=== PATIENT | male | born 1935 | race Two or more races ===

== ENCOUNTER 2019-10-01 11:13 | Inpatient (IN) | payer MEDICARE, OTHER ==
[~2019-10-01] VITALS: Ht 165.1 cm; Wt 90.0 kg
[2019-10-01 11:44] LABS: Basophils # (auto) 0 uL; Basophils % (auto) 0.4 % (0.0-2.0); Eosinophils # (auto) 0.1 uL; Hematocrit 32.9 % (41.0-53.0); Hemoglobin 11.2 g/dL (13.5-17.5); Lymphocytes # (auto) 0.9 uL; Lymphocytes % (auto) 11.4 % (10.0-50.0); Mean Corpuscular Hemoglobin 31.7 pg (28.0-32.0); Mean Corpuscular Volume 93.1 fL (80.0-100.0); Monocytes # (auto) 0.7 uL; Monocytes % (auto) 9.1 % (0.0-12.0); Neutrophils # (auto) 5.9 uL; Neutrophils % (auto) 78.1 % (37.0-80.0); Platelet Count (auto) 191 10^3/uL (140-450); Red Blood Cells 3.54 10^6/uL (4.5-5.90); Red Cell Distribution Width 14.3 % (11.8-14.3); White Blood Cell 7.5 10^3/uL (4.4-10.8)
[2019-10-01] MEDS ORDERED: FUROSEMIDE 40 MG/4 ML VIAL IV ONE (12:00)
[2019-10-01 12:05] LABS: Albumin 3.3 g/dL (3.4-5.0); Anion Gap 8 (5-15); Blood Urea Nitrogen 38 mg/dL (7-18); Calcium 8.3 mg/dL (8.5-10.1); Carbon Dioxide 19 mmol/L (21-32); Chloride 113 mmol/L (98-107); Glucose 113 mg/dL (74-106); Potassium 4.5 mmol/L (3.5-5.1); Sodium 140 mmol/L (136-145)
[2019-10-01 12:09] LABS: Alanine Aminotransferase 17 U/L (16-61); Alkaline Phosphatase 91 U/L (45-117); Aspartate Aminotransferase 28 U/L (15-37); BUN/Creatinine Ratio 20.8; Bilirubin, Total 0.5 mg/dL (0.2-1.0); GFR African American 45 mL/min; GFR Non-African American 37 mL/min; Total Protein 6.5 g/dL (6.4-8.2)
[2019-10-01] MEDS ORDERED: NITROGLYCERIN 0.4 MG SL TAB SL PRN (14:45)
[2019-10-01] MEDS ORDERED: ENALAPRILAT 1.25 MG/ML-1ML VIAL IV PRN (14:45)
[2019-10-01] MEDS ORDERED: HYDROcodone-ACET 5/325MG TAB PO PRN (14:45)
[2019-10-01] MEDS ORDERED: MORPHINE SULF INJ 2 MG/ML SYRINGE 1ML IV PRN ×2 (14:45)
[2019-10-01] MEDS ORDERED: ACETAMINOPHEN 500 MG TAB PO PRN (14:45)
[2019-10-01] MEDS ORDERED: ONDANSETRON HCL 4 MG/2 ML VIAL IV PRN (14:45)
[2019-10-01] MEDS ORDERED: guaiFENesin-DM 100/10mg/5ml SYR PO PRN (15:00)
[2019-10-01] MEDS ORDERED: DEXTROSE (50%) 50ML SYRG IV PRN (15:15)
[2019-10-01 15:41] LABS: Cholesterol 117 mg/dL (< 200)
[2019-10-01 15:44] LABS: HDL Cholesterol 27 mg/dL (40-59); LDL Cholesterol 81 mg/dL (< 100); Triglycerides 83 mg/dL (< 150)
[2019-10-01] MEDS: CARVEDILOL 3.125 MG TAB PO SCH ×2 (16:02→21:44)
[2019-10-01] MEDS: InsuLIN REG 1unit/0.01ml Soln (100units/ml) SC SCH ×2 (17:00→21:44)
--- NOTE | 2019-10-01 17:36 | NUR ---
Telemetry admit from ER THAI RANGEL admitted to Telemetry unit after SBAR received. Patient oriented to Heena Marte, primary RN, unit, room, bed, and unit policies regarding patient care and visiting hours. Patient now on continuous telemetry monitoring, tele box # 11 and telemetry reading on arrival to unit is A-FIB AT 95BPM]. Patient placed on bedside oxygen, weighed by bedscale and encouraged to call if they need something. All questions and concerns addressed, patient verbalized understanding. Note: RECEIVED PT VIA WHEELCHAIR,PT IS AWAKE AND ALERT NO SIGNS OF DISTRESS AT THIS TIME, NOTED PITTING EDEMA 2+ on both lower etremities, vital signs within normal limits, will continue to monitor.
--- NOTE | 2019-10-01 17:36 | NUR ---
RECEIVED REPORT FROM LEONID GOOD IN ER
[2019-10-01 17:41] VITALS: BP 132/90
[2019-10-01] MEDS: FUROSEMIDE 20 MG/2 ML VIAL IV SCH (17:57)
[2019-10-01] MEDS: ACCU-CHEK COMFORT CURVE STRIP VI SCH ×2 (17:58→21:45)
[2019-10-01 18:00] VITALS: BP 147/76
[2019-10-01] MEDS ORDERED: ASPI-404 PO (18:18)
[2019-10-01] MEDS ORDERED: FINA5TAB4 PO (18:18)
[2019-10-01] MEDS ORDERED: TELM20TA PO (18:18)
[2019-10-01] MEDS ORDERED: ALFU10TA33 PO (18:18)
[2019-10-01] MEDS ORDERED: NEBI5TAB2 PO (18:18)
[2019-10-01] MEDS ORDERED: LORA-622 PO (18:18)
[2019-10-01] MEDS ORDERED: TADA20TA33 PO (18:18)
[2019-10-01] MEDS ORDERED: LISI-646 PO (18:18)
[2019-10-01] MEDS ORDERED: AMLO5TAB15 PO (18:18)
[2019-10-01] MEDS ORDERED: FERR45TA7 PO (18:18)
[2019-10-01] MEDS ORDERED: OMEP20TA PO (18:18)
[2019-10-01] MEDS ORDERED: INSU100I33 SC (18:18)
--- NOTE | 2019-10-01 19:27 | NUR ---
Opening Shift Note Assumed care of patient, awake and alert x 4. No S/S of distress/SOB. Bed is in lowest position and locked. Call light within reach. Board updated. Tele box number matches monitor and leads are in proper position. Instructed on POC and to call for assist PRN, will continue to monitor for changes Q1hr and PRN.
[2019-10-01] MEDS: ATORVASTATIN 20 MG TAB PO SCH (21:44)
[2019-10-01 21:48] VITALS: BP 145/84
[2019-10-02 05:30] VITALS: BP 137/76
[2019-10-02 06:01] LABS: Basophils # (auto) 0 uL; Basophils % (auto) 0.6 % (0.0-2.0); Eosinophils # (auto) 0.2 uL; Eosinophils % (auto) 2.9 % (0.0-7.0); Hematocrit 34.1 % (41.0-53.0); Hemoglobin 11.5 g/dL (13.5-17.5); Lymphocytes # (auto) 1.2 uL; Lymphocytes % (auto) 15.6 % (10.0-50.0); Mean Corpuscular Hemoglobin 31.1 pg (28.0-32.0); Mean Corpuscular Hgb Conc. 33.8 g/dL (32.0-36.0); Monocytes # (auto) 0.9 uL; Monocytes % (auto) 11.5 % (0.0-12.0); Neutrophils # (auto) 5.5 uL; Neutrophils % (auto) 69.4 % (37.0-80.0); Platelet Count (auto) 224 10^3/uL (140-450); Red Blood Cells 3.71 10^6/uL (4.5-5.90); White Blood Cell 7.9 10^3/uL (4.4-10.8)
[2019-10-02] MEDS: ACCU-CHEK COMFORT CURVE STRIP VI SCH ×4 (06:07→21:31)
[2019-10-02] MEDS: FUROSEMIDE 20 MG/2 ML VIAL IV SCH ×2 (06:07→17:42)
[2019-10-02 06:18] LABS: INR 1.14 (0.9-1.15); Partial Thromboplastin Time 27.3 sec (23.64-32.05)
[2019-10-02] MEDS: InsuLIN REG 1unit/0.01ml Soln (100units/ml) SC SCH ×4 (06:20→21:31)
[2019-10-02 06:30] LABS: BUN/Creatinine Ratio 24.7; Calcium 8.8 mg/dL (8.5-10.1)
--- NOTE | 2019-10-02 07:18 | NUR ---
Opening Shift Note Assumed care of patient, resting in bed with eyes closed. No S/S of distress/SOB or pain. Bed is set in lowest locked position with side rails up x 2 and call light is within reach. Will continue to monitor for changes Q1hr and PRN.
[2019-10-02 08:02] VITALS: BP 133/68
[2019-10-02 08:16] VITALS: BP 133/68
[2019-10-02] MEDS: FAMOTIDINE 20 MG TAB PO SCH (09:47)
[2019-10-02] MEDS: LISINOPRIL 10 MG TAB PO SCH (09:47)
[2019-10-02] MEDS: ASPirin-EC 81 mg tab PO SCH (09:47)
[2019-10-02] MEDS: CARVEDILOL 3.125 MG TAB PO SCH ×2 (09:48→21:28)
[2019-10-02 12:50] VITALS: BP 141/76
--- NOTE | 2019-10-02 13:28 | NUR ---
MD at bedside Dr. Torre, updated patient on POC.
--- NOTE | 2019-10-02 15:14 | NUR ---
Patient off unit Taken down via wheelchair to [facility] for VQ scan. No signs/symptoms of distress/SOB noted.
[2019-10-02 16:51] VITALS: BP 155/85
[2019-10-02 17:20] LABS: Urine Bacteria NONE SEEN /hpf (None Seen); Urine Blood Negative /uL (Negative); Urine Mucus FEW (None Seen); Urine Specific Gravity 1.013 (1.001-1.035); Urine WBC 1 /hpf (0 - 3)
--- NOTE | 2019-10-02 19:45 | NUR ---
Opening Shift Note Assumed care of patient, awake, alert, and oriented. No S/S of distress/SOB or pain. Bed in lowest/locked position, bed rails up x2, call light within reach. Instructed on POC and to call for assist PRN. Will continue to monitor for changes Q1hr and PRN.
[2019-10-02] MEDS: ATORVASTATIN 20 MG TAB PO SCH (21:27)
[2019-10-02 22:00] VITALS: BP 159/87
--- NOTE | 2019-10-03 03:30 | NUR ---
RECEIVED REPORT. ASSUMED CARE OF PT.
[2019-10-03 05:00] VITALS: BP 130/72
[2019-10-03] MEDS: FUROSEMIDE 20 MG/2 ML VIAL IV SCH ×2 (06:31→18:30)
[2019-10-03] MEDS: InsuLIN REG 1unit/0.01ml Soln (100units/ml) SC SCH ×4 (07:00→21:27)
[2019-10-03] MEDS: ACCU-CHEK COMFORT CURVE STRIP VI SCH ×4 (07:21→21:27)
--- NOTE | 2019-10-03 09:00 | NUR ---
PLEASANT COOPERATIVE PROFICIENT WITH SELF CARE. DENIES DISCOMFORT THIS AM.
[2019-10-03 09:02] VITALS: BP 127/66
--- NOTE | 2019-10-03 10:10 | NUR ---
DR. SJ GAMBOA.
[2019-10-03] MEDS: FAMOTIDINE 20 MG TAB PO SCH (10:36)
[2019-10-03] MEDS: ASPirin-EC 81 mg tab PO SCH (10:36)
[2019-10-03] MEDS: LISINOPRIL 10 MG TAB PO SCH (10:37)
[2019-10-03] MEDS: CARVEDILOL 3.125 MG TAB PO SCH ×2 (10:38→21:26)
--- NOTE | 2019-10-03 12:00 | NUR ---
DR. Kelvin GAMBOA. ORDERS RADIOLOGY OF HIP FOR PAIN REPORTED BY PT.
[2019-10-03 12:30] VITALS: BP 129/76
--- NOTE | 2019-10-03 12:40 | NUR ---
RETURNS FROM RADIOLOGY
[2019-10-03 17:00] VITALS: BP 150/88
--- NOTE | 2019-10-03 19:28 | NUR ---
Opening Shift Note Assumed care of patient, awake and alert. No S/S of distress/SOB or pain. Instructed on POC and to call for assist PRN, will continue to monitor for changes Q1hr and PRN. Side rails up x2. Bed locked in lowest position. Call light within reach.
[2019-10-03] MEDS: ATORVASTATIN 20 MG TAB PO SCH (21:26)
[2019-10-03 22:00] VITALS: BP 160/76
[2019-10-04 05:00] VITALS: BP 149/75
[2019-10-04] MEDS: FUROSEMIDE 20 MG/2 ML VIAL IV SCH ×2 (06:39→19:33)
[2019-10-04] MEDS: InsuLIN REG 1unit/0.01ml Soln (100units/ml) SC SCH ×4 (06:39→22:13)
[2019-10-04] MEDS: ACCU-CHEK COMFORT CURVE STRIP VI SCH ×4 (06:39→22:14)
[2019-10-04 07:06] LABS: Albumin 3.1 g/dL (3.4-5.0); Calcium 8.6 mg/dL (8.5-10.1); Potassium 3.7 mmol/L (3.5-5.1)
[2019-10-04 07:10] LABS: BUN/Creatinine Ratio 27.2; Bilirubin, Total 0.6 mg/dL (0.2-1.0); Total Protein 6.3 g/dL (6.4-8.2)
--- NOTE | 2019-10-04 07:22 | NUR ---
Endorsed care to day shift. Patient in bed awake with no signs of distress/sob/pain.
--- NOTE | 2019-10-04 07:40 | NUR ---
ASSUMED CARE OF PT AWAKE BRIGHT AND ENGAGING. DENIES DISCOMFORT. LUNG SOUNDS CLEAR. PEDAL PULSES STRONG. EDEMA MOSTLY RESOLVED IN LOWER EXTREMITIES.
[2019-10-04 09:20] VITALS: BP 126/66
[2019-10-04] MEDS ORDERED: DILTIAZEM HCL 120MG ER CAP PO ONE (10:15)
--- NOTE | 2019-10-04 10:30 | NUR ---
BOTH MARIBEL GARCES AND DR. Kelvin PRASAD SEE PT. EXPLAIN PLANS FOR MEDICATION AND MRI WITH PLANNED DC TOMORROW.
[2019-10-04] MEDS: FAMOTIDINE 20 MG TAB PO SCH (12:00)
[2019-10-04] MEDS: LISINOPRIL 10 MG TAB PO SCH (12:00)
--- NOTE | 2019-10-04 12:31 | NUR ---
RETURNS FROM MRI. FSBS COVERED WITH SLIDING SCALE.
[2019-10-04] MEDS: CARVEDILOL 12.5 MG TAB PO SCH ×2 (12:33→21:52)
--- NOTE | 2019-10-04 15:32 | NUR ---
Nutrition Assessment Notes Please refer to link for full assessment notes Est energy needs: 3046-1069 kcals (17-20 kcals/kgBW) Est protein needs: 56-70 gms/day (0.8-1.0 gm/kg AdjBW) Will continue to monitor and reassess prn Addendum: 10/04/19 at [address] Amended: Links added.
--- NOTE | 2019-10-04 16:00 | NUR ---
C/O IV SITE LEAKING. ASSESSED. SMALL AMOUNT OF OLD BLOOD NOTED UNDER DSG AT INSERTION POINT. IV HEPLOCK FLUSHED. PATENT. DSG REINFORCED. PT SHARES THAT HE DID FEEL ANXIETY WHEN RETURNING TO HIS ROOM FROM MRI. REASSURED THAT REPORTED ANXIETY WITH AN MRI IS NOT UNCOMMON. PT STATES FEELING BETTER. FAMILY MEMBERS VISITING.
[2019-10-04 17:10] VITALS: BP 122/65
[2019-10-04 21:00] VITALS: BP 122/60
[2019-10-04] MEDS: APIXABAN 2.5 MG TAB PO SCH (21:49)
[2019-10-04] MEDS: ATORVASTATIN 20 MG TAB PO SCH (21:50)
[2019-10-05 04:30] VITALS: BP 130/67
[2019-10-05] MEDS: FUROSEMIDE 20 MG/2 ML VIAL IV SCH (05:47)
[2019-10-05] MEDS: ACCU-CHEK COMFORT CURVE STRIP VI SCH ×2 (06:28→11:30)
[2019-10-05] MEDS: InsuLIN REG 1unit/0.01ml Soln (100units/ml) SC SCH ×2 (06:29→11:30)
--- NOTE | 2019-10-05 08:00 | NUR ---
ASSUMED CARE. BRIGHT ALERT AND VERBALLY APPROPRIATE. NO COMPLAINTS. INDEPENDENT IN HIS ADL'S
[2019-10-05 09:14] VITALS: BP 134/79
[2019-10-05] MEDS ORDERED: DILTIAZEM HCL 120MG ER CAP PO SCH (10:00)
[2019-10-05] MEDS: APIXABAN 2.5 MG TAB PO SCH (11:30)
[2019-10-05] MEDS: LISINOPRIL 10 MG TAB PO SCH (11:30)
[2019-10-05] MEDS: FAMOTIDINE 20 MG TAB PO SCH (11:30)
[2019-10-05] MEDS: CARVEDILOL 12.5 MG TAB PO SCH (11:30)
--- NOTE | 2019-10-05 11:30 | NUR ---
PRESENT WHEN DR. PRASAD ROUNDS. CONFIRMS HOME MEDICATIONS WITH PT. HAS APPOINTMENT WITH DR. MCELROY THIS NEXT TUE THE . DAUGHTER IS IN THE ROOM AND CONFIRMS. PT IS WELL VERSED IN HIS MEDICATIONS. DISCUSSION HAD RE: F/U FOR SKELETAL SPINE CHANGES.
[2019-10-05 13:22] VITALS: BP 150/97
--- NOTE | 2019-10-05 13:30 | NUR ---
DISCHARGE PROCESSED. STABLE. INSTRUCTIONS, APPOINTMENTS AND PRESCRIPTIONS PROVIDED. IV TO RT HAND DC'D CANNULA INTACT.
--- NOTE | 2019-10-05 14:00 | NUR ---
DC HOME VIA WC TO PRIVATE VEHICLE.
--- NOTE | 2019-10-05 14:53 | NUR ---
assessment Patient is a 84 year old male who is alert and oriented. Patients cognitive abilities are intact. Prior to admission patient lived home with his and functioned independently. Patient informed me he is able to care for his own ADLs. Per patient he will return home to his prior living arrangements post discharge and family will transport him home. Patient informed me he has good family support. Family was at bedside while I did my assessment. Patients PCP is Dr White. Patient may benefit from home health for vitals and safety on discharge. I informed patient he has a right to speak to a social media content specialist regarding all care. I informed patient he has a right to participate in any and all discharge planning. Patient does not have a POA and advanced directive. I have offered patient information on POA and advanced directives. I informed the patient the advantages and benefits of having an Advanced Directive. Patient verbalized understanding and agreed to discharge plan. Addendum: 10/05/19 at 1455 by Rere CHAMBERLAIN Amended: Links added.
== END 2019-10-05 14:00 | disposition home or self-care (01) | DRG 291 ==
LOC: ER 11:16 → TELE 11:17 → TELE-EAST 17:45
PROVIDERS: ADMIT Nurse Practitioner Acute Care; ATTEND Family Medicine
DX: I13.0 Hypertensive heart and chronic kidney disease with heart failure and stage 1 through stage 4 chronic kidney disease, or unspecified chronic kidney disease (principal); I50.43 Acute on chronic combined systolic (congestive) and diastolic (congestive) heart failure; N17.0 Acute kidney failure with tubular necrosis; I48.91 Unspecified atrial fibrillation; N18.3 Chronic kidney disease, stage 3 (moderate); D64.9 Anemia, unspecified; E03.9 Hypothyroidism, unspecified; E11.22 Type 2 diabetes mellitus with diabetic chronic kidney disease; E66.9 Obesity, unspecified; M51.26 Other intervertebral disc displacement, lumbar region; M48.061 Spinal stenosis, lumbar region without neurogenic claudication; M54.32 Sciatica, left side; M16.12 Unilateral primary osteoarthritis, left hip; G89.29 Other chronic pain; I71.4 Abdominal aortic aneurysm, without rupture; Z88.8 Allergy status to other drugs, medicaments and biological substances; Z68.33 Body mass index [BMI] 33.0-33.9, adult
CPT/HCPCS: 36415; 71045; 72131; 72148; 73700; 76775; 78582; 80048; 80053; 80061; 81001; 82570; 82962; 83036; 83735; 83880; 84156; 84300; 84443; 84484; 85025; 85379; 85610; 85730; 86141; 93306; 93970; 96374; 96376; G0378; J1815

== ENCOUNTER → 2020-01-03 | Outpatient (CLI) | payer MEDICARE, OTHER ==
[~2020-01-03] MED LIST: ALFU10TA33 PO; AMLO5TAB15 PO; APIX2.5T PO; ASPI-404 PO; ATOR40TA52 PO; CARV25TA55 PO; DILT120T3 PO; FERR45TA7 PO; FINA5TAB4 PO; FURO20TA3 PO; INSU100I33 SC; LISI-646 PO; OMEP20TA PO; TADA20TA33 PO
[2020-01-03 07:25] LABS: Basophils # (auto) 0.1 10 ^3/uL (0-0.2); Eosinophils # (auto) 0.3 10 ^3/uL (0-0.8); Eosinophils % (auto) 3.5 % (0.0-7.0); Hemoglobin 12.9 g/dL (13.5-17.5); Lymphocytes # (auto) 2.7 10 ^3/uL (0.4-5.4); Lymphocytes % (auto) 32.7 % (10.0-50.0); Mean Corpuscular Hemoglobin 31.3 pg (28.0-32.0); Monocytes # (auto) 0.8 10 ^3/uL (0-1.3); Monocytes % (auto) 10.4 % (0.0-12.0); Neutrophils # (auto) 4.2 10 ^3/uL (1.6-8.6); Neutrophils % (auto) 52.4 % (37.0-80.0); Platelet Count (auto) 160 10^3/uL (140-450); Red Blood Cells 4.14 10^6/uL (4.5-5.90); Red Cell Distribution Width 14.5 % (11.8-14.3); White Blood Cell 8.1 10^3/uL (4.4-10.8)
[2020-01-03 07:39] LABS: Urine Bacteria NONE SEEN /hpf (None Seen); Urine Blood Negative /uL (Negative); Urine Specific Gravity 1.009 (1.001-1.035); Urine WBC 1 /hpf (0 - 3)
[2020-01-03 08:27] LABS: Albumin 3.2 g/dL (3.4-5.0); Calcium 8.7 mg/dL (8.5-10.1); Potassium 3.8 mmol/L (3.5-5.1)
[2020-01-03 08:33] LABS: BUN/Creatinine Ratio 23.8; Bilirubin, Total 0.5 mg/dL (0.2-1.0); Total Protein 6.6 g/dL (6.4-8.2)
[2020-01-03 08:36] LABS: Free T4 (Free Thyroxine) 1.17 ng/dL (0.89-1.76)
[2020-01-03 08:37] LABS: Prostate Specific Antigen 0.49 ng/mL (0.0-4.0)
[2020-01-03 08:38] LABS: Folate (Folic Acid) 22.34 ng/mL (5.38-24)
== END | disposition home or self-care (01) ==
LOC: LAB 07:06
PROVIDERS: ATTEND Internal Medicine
DX: E11.69 Type 2 diabetes mellitus with other specified complication (principal); N40.0 Benign prostatic hyperplasia without lower urinary tract symptoms; I48.91 Unspecified atrial fibrillation
CPT/HCPCS: 36415; 80053; 80061; 81001; 82043; 82607; 82746; 83036; 84153; 84439; 84443; 85025

== ENCOUNTER → 2020-03-07 | Outpatient (CLI) | payer MEDICARE, OTHER ==
[~2020-03-07] VITALS: Ht 165.1 cm; Wt 80.7 kg
[~2020-03-07] MED LIST changes: +ADENOSINE 68 MG in GIVE UN-DILUTED 0 ML IV STA; -ASPI-404 PO; +ASPI-543 PO
== END | disposition home or self-care (01) ==
LOC: XY 07:26
PROVIDERS: ATTEND Internal Medicine
DX: I48.91 Unspecified atrial fibrillation (principal); E11.9 Type 2 diabetes mellitus without complications; I10 Essential (primary) hypertension; I27.20 Pulmonary hypertension, unspecified; I49.9 Cardiac arrhythmia, unspecified; N40.0 Benign prostatic hyperplasia without lower urinary tract symptoms
CPT/HCPCS: 78452; 93017; A9500; J0153

== ENCOUNTER → 2020-05-12 | Outpatient (CLI) | payer MEDICARE, OTHER ==
[~2020-05-12] MED LIST changes: -ADENOSINE 68 MG in GIVE UN-DILUTED 0 ML IV STA
== END | disposition home or self-care (01) ==
LOC: RT 08:36
PROVIDERS: ATTEND Internal Medicine Pulmonary Disease
DX: J84.10 Pulmonary fibrosis, unspecified (principal); I27.20 Pulmonary hypertension, unspecified
CPT/HCPCS: 94060; 94727; 94729

== ENCOUNTER → 2020-07-11 | Outpatient (CLI) | payer MEDICARE, OTHER ==
[2020-07-11 16:32] LABS: Anion Gap 7 (5-15); BUN/Creatinine Ratio 20.3; Blood Urea Nitrogen 24 mg/dL (7-18); Calcium 8.7 mg/dL (8.5-10.1); Carbon Dioxide 25 mmol/L (21-32); Chloride 106 mmol/L (98-107); GFR African American 75 mL/min; GFR Non-African American 62 mL/min; Glucose 334 mg/dL (74-106); Potassium 4.4 mmol/L (3.5-5.1); Sodium 138 mmol/L (136-145)
== END | disposition home or self-care (01) ==
LOC: LAB 15:35
DX: R91.1 Solitary pulmonary nodule (principal)
CPT/HCPCS: 36415; 80048

== ENCOUNTER → 2020-09-04 | Outpatient (CLI) | payer MEDICARE, OTHER ==
[2020-09-04 07:42] LABS: Basophils # (auto) 0 10 ^3/uL (0-0.2); Basophils % (auto) 0.4 % (0.0-2.0); Eosinophils # (auto) 0.3 10 ^3/uL (0-0.8); Eosinophils % (auto) 2.9 % (0.0-7.0); Hematocrit 35.7 % (41.0-53.0); Hemoglobin 11.7 g/dL (13.5-17.5); Lymphocytes # (auto) 1.3 10 ^3/uL (0.4-5.4); Lymphocytes % (auto) 13.2 % (10.0-50.0); Mean Corpuscular Hgb Conc. 32.8 g/dL (32.0-36.0); Mean Corpuscular Volume 94.5 fL (80.0-100.0); Monocytes # (auto) 0.9 10 ^3/uL (0-1.3); Monocytes % (auto) 9.4 % (0.0-12.0); Neutrophils # (auto) 7.5 10 ^3/uL (1.6-8.6); Neutrophils % (auto) 74.1 % (37.0-80.0); Nucleated Red Blood Cells % 0.1 %; Platelet Count (auto) 164 10^3/uL (140-450); Red Blood Cells 3.77 10^6/uL (4.5-5.90); Red Cell Distribution Width 13.7 % (11.8-14.3); White Blood Cell 10.1 10^3/uL (4.4-10.8)
[2020-09-04 09:53] LABS: Albumin 3.1 g/dL (3.4-5.0); Calcium 8.1 mg/dL (8.5-10.1); Potassium 3.7 mmol/L (3.5-5.1)
[2020-09-04 09:58] LABS: Bilirubin, Total 0.7 mg/dL (0.2-1.0); Total Protein 6.2 g/dL (6.4-8.2)
== END | disposition home or self-care (01) ==
LOC: LAB 07:12
PROVIDERS: ATTEND Internal Medicine
DX: E11.22 Type 2 diabetes mellitus with diabetic chronic kidney disease (principal); N18.30 Chronic kidney disease, stage 3 unspecified
CPT/HCPCS: 36415; 80053; 80061; 83036; 85025

== ENCOUNTER → 2020-09-11 | Outpatient (CLI) | payer MEDICARE, OTHER ==
[2020-09-11 11:41] LABS: Basophils # (auto) 0.1 10 ^3/uL (0-0.2); Basophils % (auto) 0.4 % (0.0-2.0); Eosinophils # (auto) 0.2 10 ^3/uL (0-0.8); Eosinophils % (auto) 2.1 % (0.0-7.0); Hematocrit 36.5 % (41.0-53.0); Hemoglobin 12.2 g/dL (13.5-17.5); Lymphocytes % (auto) 16.3 % (10.0-50.0); Mean Corpuscular Hemoglobin 31.1 pg (28.0-32.0); Mean Corpuscular Hgb Conc. 33.3 g/dL (32.0-36.0); Mean Corpuscular Volume 93.3 fL (80.0-100.0); Monocytes % (auto) 8.3 % (0.0-12.0); Neutrophils # (auto) 8.8 10 ^3/uL (1.6-8.6); Neutrophils % (auto) 72.9 % (37.0-80.0); Nucleated Red Blood Cells % 0.1 %; Platelet Count (auto) 206 10^3/uL (140-450); Red Blood Cells 3.92 10^6/uL (4.5-5.90); Red Cell Distribution Width 13.7 % (11.8-14.3); White Blood Cell 12.1 10^3/uL (4.4-10.8)
[2020-09-11 11:50] LABS: Albumin 3.2 g/dL (3.4-5.0); Calcium 8.4 mg/dL (8.5-10.1); Potassium 4.2 mmol/L (3.5-5.1)
[2020-09-11 11:55] LABS: BUN/Creatinine Ratio 22.5; Bilirubin, Total 0.6 mg/dL (0.2-1.0); Total Protein 6.8 g/dL (6.4-8.2)
== END | disposition home or self-care (01) ==
LOC: LAB 11:01
PROVIDERS: ATTEND Internal Medicine
DX: C78.02 Secondary malignant neoplasm of left lung (principal); E03.9 Hypothyroidism, unspecified
CPT/HCPCS: 36415; 80053; 83615; 84436; 84443; 85025

== ENCOUNTER → 2020-09-25 | Outpatient (CLI) | payer MEDICARE, OTHER ==
[2020-09-25 08:49] LABS: Albumin 2.9 g/dL (3.4-5.0); Calcium 8.3 mg/dL (8.5-10.1); Magnesium 1.9 mg/dL (1.6-2.6); Potassium 4.2 mmol/L (3.5-5.1); Uric Acid 4.2 mg/dL (3.5-7.2)
[2020-09-25 08:53] LABS: BUN/Creatinine Ratio 21.9; Bilirubin, Total 0.5 mg/dL (0.2-1.0); Phosphorus 3.1 mg/dL (2.5-4.90); Total Protein 6.5 g/dL (6.4-8.2)
[2020-09-25 09:09] LABS: Micro Albumin 15.3 mg/L (0-30.0)
== END | disposition home or self-care (01) ==
LOC: LAB 08:09
PROVIDERS: ATTEND Internal Medicine Nephrology
DX: E78.5 Hyperlipidemia, unspecified (principal); E11.22 Type 2 diabetes mellitus with diabetic chronic kidney disease; N18.30 Chronic kidney disease, stage 3 unspecified; D63.1 Anemia in chronic kidney disease; E21.3 Hyperparathyroidism, unspecified; M10.9 Gout, unspecified; R80.9 Proteinuria, unspecified; E56.9 Vitamin deficiency, unspecified
CPT/HCPCS: 36415; 80053; 82043; 82306; 82570; 83036; 83735; 83970; 84100; 84550

== ENCOUNTER → 2020-10-07 | Outpatient (CLI) | payer MEDICARE, OTHER ==
[2020-10-07 14:06] LABS: Basophils # (auto) 0.1 10 ^3/uL (0-0.2); Basophils % (auto) 0.5 % (0.0-2.0); Eosinophils # (auto) 0.1 10 ^3/uL (0-0.8); Eosinophils % (auto) 1.3 % (0.0-7.0); Hematocrit 34.6 % (41.0-53.0); Hemoglobin 11.8 g/dL (13.5-17.5); Lymphocytes # (auto) 1.7 10 ^3/uL (0.4-5.4); Lymphocytes % (auto) 16.4 % (10.0-50.0); Mean Corpuscular Hemoglobin 31.7 pg (28.0-32.0); Mean Corpuscular Hgb Conc. 34.2 g/dL (32.0-36.0); Mean Corpuscular Volume 92.7 fL (80.0-100.0); Monocytes # (auto) 0.9 10 ^3/uL (0-1.3); Monocytes % (auto) 8.9 % (0.0-12.0); Neutrophils # (auto) 7.6 10 ^3/uL (1.6-8.6); Neutrophils % (auto) 72.9 % (37.0-80.0); Platelet Count (auto) 196 10^3/uL (140-450); Red Blood Cells 3.73 10^6/uL (4.5-5.90); Red Cell Distribution Width 13.5 % (11.8-14.3); White Blood Cell 10.4 10^3/uL (4.4-10.8)
[2020-10-07 14:41] LABS: Potassium 4.1 mmol/L (3.5-5.1)
[2020-10-07 14:51] LABS: Albumin 3.2 g/dL (3.4-5.0); BUN/Creatinine Ratio 22.1; Bilirubin, Total 0.6 mg/dL (0.2-1.0); Calcium 8.6 mg/dL (8.5-10.1); Total Protein 6.8 g/dL (6.4-8.2)
== END | disposition home or self-care (01) ==
LOC: LAB 13:49
PROVIDERS: ATTEND Internal Medicine
DX: C78.02 Secondary malignant neoplasm of left lung (principal); E78.5 Hyperlipidemia, unspecified
CPT/HCPCS: 36415; 80053; 83615; 84436; 84443; 85025

== ENCOUNTER → 2020-10-10 | Outpatient (CLI) | payer MEDICARE, OTHER ==
[2020-10-10 10:49] LABS: Basophils # (auto) 0.1 10 ^3/uL (0-0.2); Basophils % (auto) 0.7 % (0.0-2.0); Eosinophils # (auto) 0.2 10 ^3/uL (0-0.8); Hematocrit 33.7 % (41.0-53.0); Hemoglobin 11.5 g/dL (13.5-17.5); Lymphocytes # (auto) 1.3 10 ^3/uL (0.4-5.4); Lymphocytes % (auto) 15.4 % (10.0-50.0); Mean Corpuscular Hemoglobin 31.8 pg (28.0-32.0); Mean Corpuscular Volume 93.4 fL (80.0-100.0); Monocytes # (auto) 0.7 10 ^3/uL (0-1.3); Monocytes % (auto) 8.3 % (0.0-12.0); Neutrophils # (auto) 6.1 10 ^3/uL (1.6-8.6); Neutrophils % (auto) 73.6 % (37.0-80.0); Platelet Count (auto) 168 10^3/uL (140-450); Red Blood Cells 3.61 10^6/uL (4.5-5.90); White Blood Cell 8.3 10^3/uL (4.4-10.8)
[2020-10-10 11:03] LABS: INR 1.13 (0.9-1.15); Partial Thromboplastin Time 28.2 sec (23.0-31.2)
[2020-10-10 11:18] LABS: Albumin 2.9 g/dL (3.4-5.0); Bilirubin, Direct 0.2 mg/dL (0-0.2); Calcium 7.9 mg/dL (8.5-10.1); Potassium 4.9 mmol/L (3.5-5.1)
[2020-10-10 11:21] LABS: BUN/Creatinine Ratio 22.5; Bilirubin, Total 0.6 mg/dL (0.2-1.0); Total Protein 6.5 g/dL (6.4-8.2)
== END | disposition home or self-care (01) ==
LOC: LAB 10:27
PROVIDERS: ATTEND Internal Medicine
DX: C78.02 Secondary malignant neoplasm of left lung (principal); I50.31 Acute diastolic (congestive) heart failure
CPT/HCPCS: 36415; 80053; 80076; 83615; 85025; 85610; 85730

== ENCOUNTER → 2020-10-24 | Outpatient (CLI) | payer MEDICARE, OTHER ==
[~2020-10-24] MED LIST changes: +AMLO-489 PO; -AMLO5TAB15 PO
[2020-10-24 10:22] LABS: Basophils # (auto) 0 10 ^3/uL (0-0.2); Basophils % (auto) 0.4 % (0.0-2.0); Eosinophils # (auto) 0.3 10 ^3/uL (0-0.8); Eosinophils % (auto) 2.4 % (0.0-7.0); Hematocrit 33.4 % (41.0-53.0); Hemoglobin 11.7 g/dL (13.5-17.5); Lymphocytes # (auto) 1.5 10 ^3/uL (0.4-5.4); Lymphocytes % (auto) 14.1 % (10.0-50.0); Mean Corpuscular Hemoglobin 32.4 pg (28.0-32.0); Mean Corpuscular Hgb Conc. 34.9 g/dL (32.0-36.0); Mean Corpuscular Volume 92.9 fL (80.0-100.0); Monocytes # (auto) 0.9 10 ^3/uL (0-1.3); Monocytes % (auto) 8.4 % (0.0-12.0); Neutrophils # (auto) 8.1 10 ^3/uL (1.6-8.6); Neutrophils % (auto) 74.7 % (37.0-80.0); Platelet Count (auto) 182 10^3/uL (140-450); Red Cell Distribution Width 13.7 % (11.8-14.3); White Blood Cell 10.9 10^3/uL (4.4-10.8)
[2020-10-24 10:35] LABS: INR 1.12 (0.9-1.15); Partial Thromboplastin Time 29.1 sec (23.0-31.2)
[2020-10-24 10:55] LABS: Calcium 8.2 mg/dL (8.5-10.1); Potassium 4.2 mmol/L (3.5-5.1)
[2020-10-24 11:00] LABS: BUN/Creatinine Ratio 22.7; Bilirubin, Direct 0.3 mg/dL (0-0.2); Bilirubin, Total 0.7 mg/dL (0.2-1.0); Total Protein 6.6 g/dL (6.4-8.2)
== END | disposition home or self-care (01) ==
LOC: LAB 09:53
PROVIDERS: ATTEND Internal Medicine
DX: C78.02 Secondary malignant neoplasm of left lung (principal); I50.31 Acute diastolic (congestive) heart failure
CPT/HCPCS: 36415; 80053; 80076; 83615; 85025; 85610; 85730

== ENCOUNTER → 2020-10-31 | Outpatient (CLI) | payer MEDICARE, OTHER ==
[2020-10-31 10:39] LABS: Basophils # (auto) 0 10 ^3/uL (0-0.2); Basophils % (auto) 0.4 % (0.0-2.0); Eosinophils # (auto) 0.3 10 ^3/uL (0-0.8); Eosinophils % (auto) 2.2 % (0.0-7.0); Hemoglobin 11.6 g/dL (13.5-17.5); Lymphocytes # (auto) 1.5 10 ^3/uL (0.4-5.4); Lymphocytes % (auto) 11.9 % (10.0-50.0); Mean Corpuscular Hemoglobin 31.6 pg (28.0-32.0); Mean Corpuscular Hgb Conc. 34.1 g/dL (32.0-36.0); Mean Corpuscular Volume 92.7 fL (80.0-100.0); Monocytes # (auto) 1.1 10 ^3/uL (0-1.3); Monocytes % (auto) 8.8 % (0.0-12.0); Neutrophils # (auto) 9.8 10 ^3/uL (1.6-8.6); Neutrophils % (auto) 76.7 % (37.0-80.0); Nucleated Red Blood Cells % 0.1 %; Platelet Count (auto) 208 10^3/uL (140-450); Red Blood Cells 3.67 10^6/uL (4.5-5.90); Red Cell Distribution Width 14.2 % (11.8-14.3); White Blood Cell 12.8 10^3/uL (4.4-10.8)
[2020-10-31 11:06] LABS: INR 1.13 (0.9-1.15); Partial Thromboplastin Time 28.8 sec (23.0-31.2)
[2020-10-31 11:15] LABS: Albumin 3.2 g/dL (3.4-5.0); Calcium 8.3 mg/dL (8.5-10.1); Potassium 4.2 mmol/L (3.5-5.1)
[2020-10-31 11:19] LABS: BUN/Creatinine Ratio 22.1; Bilirubin, Total 0.7 mg/dL (0.2-1.0); Total Protein 6.9 g/dL (6.4-8.2)
[2020-11-03 16:04] LABS: Hepatitis B Surface Antibody Negative
[2020-11-03 16:35] LABS: Hepatitis A Total Antibody Positive
[2020-11-03 16:56] LABS: Hepatitis B Core Total AB Negative; Hepatitis C Antibody Negative (Negative)
[2020-11-03 16:57] LABS: Hepatitis B Surface Antigen Negative (Negative)
== END | disposition home or self-care (01) ==
LOC: LAB 10:15
PROVIDERS: ATTEND Internal Medicine
DX: C78.02 Secondary malignant neoplasm of left lung (principal); E03.9 Hypothyroidism, unspecified; I50.31 Acute diastolic (congestive) heart failure; D84.81 Immunodeficiency due to conditions classified elsewhere
CPT/HCPCS: 36415; 80053; 83615; 84436; 84443; 85025; 85610; 85730; 86704; 86706; 86708; 86803; 87340

== ENCOUNTER → 2020-11-21 | Outpatient (CLI) | payer MEDICARE, OTHER ==
[2020-11-21 09:33] LABS: Basophils # (auto) 0.1 10 ^3/uL (0-0.2); Basophils % (auto) 0.8 % (0.0-2.0); Eosinophils # (auto) 0.3 10 ^3/uL (0-0.8); Hemoglobin 11.7 g/dL (13.5-17.5); Lymphocytes # (auto) 1.8 10 ^3/uL (0.4-5.4); Lymphocytes % (auto) 13.5 % (10.0-50.0); Mean Corpuscular Hemoglobin 31.1 pg (28.0-32.0); Mean Corpuscular Hgb Conc. 33.6 g/dL (32.0-36.0); Mean Corpuscular Volume 92.6 fL (80.0-100.0); Monocytes % (auto) 7.2 % (0.0-12.0); Neutrophils # (auto) 10.4 10 ^3/uL (1.6-8.6); Neutrophils % (auto) 76.5 % (37.0-80.0); Platelet Count (auto) 213 10^3/uL (140-450); Red Blood Cells 3.78 10^6/uL (4.5-5.90); Red Cell Distribution Width 14.1 % (11.8-14.3); White Blood Cell 13.6 10^3/uL (4.4-10.8)
[2020-11-21 10:19] LABS: Potassium 4.3 mmol/L (3.5-5.1)
[2020-11-21 10:26] LABS: BUN/Creatinine Ratio 22.7; Bilirubin, Total 0.6 mg/dL (0.2-1.0); Calcium 8.7 mg/dL (8.5-10.1); Total Protein 6.6 g/dL (6.4-8.2)
[2020-11-21 10:29] LABS: INR 1.16 (0.9-1.15); Partial Thromboplastin Time 27.9 sec (23.0-31.2)
[2020-11-24 11:20] LABS: Hepatitis B Surface Antibody Negative
[2020-11-24 11:51] LABS: Hepatitis A Total Antibody Negative
[2020-11-24 13:26] LABS: Hepatitis B Core Total AB Negative; Hepatitis B Surface Antigen Negative (Negative); Hepatitis C Antibody Negative (Negative)
== END | disposition home or self-care (01) ==
LOC: LAB 09:18
PROVIDERS: ATTEND Internal Medicine
DX: C78.02 Secondary malignant neoplasm of left lung (principal); I50.31 Acute diastolic (congestive) heart failure
CPT/HCPCS: 36415; 80053; 83615; 85025; 85610; 85730; 86704; 86706; 86708; 86803; 87340

== ENCOUNTER → 2020-12-05 | Outpatient (CLI) | payer MEDICARE, OTHER ==
[~2020-12-05] MED LIST changes: -LISI-646 PO; +LISI20TA28 PO
[2020-12-05 10:43] LABS: Basophils # (auto) 0 10 ^3/uL (0-0.2); Basophils % (auto) 0.4 % (0.0-2.0); Eosinophils # (auto) 0.2 10 ^3/uL (0-0.8); Eosinophils % (auto) 1.8 % (0.0-7.0); Hemoglobin 11.4 g/dL (13.5-17.5); Lymphocytes # (auto) 1.5 10 ^3/uL (0.4-5.4); Lymphocytes % (auto) 12.2 % (10.0-50.0); Mean Corpuscular Hgb Conc. 33.5 g/dL (32.0-36.0); Mean Corpuscular Volume 92.7 fL (80.0-100.0); Monocytes # (auto) 0.7 10 ^3/uL (0-1.3); Neutrophils # (auto) 9.6 10 ^3/uL (1.6-8.6); Neutrophils % (auto) 79.6 % (37.0-80.0); Platelet Count (auto) 182 10^3/uL (140-450); Red Blood Cells 3.67 10^6/uL (4.5-5.90); Red Cell Distribution Width 14.4 % (11.8-14.3); White Blood Cell 12.1 10^3/uL (4.4-10.8)
[2020-12-05 11:24] LABS: Calcium 8.4 mg/dL (8.5-10.1)
[2020-12-05 11:27] LABS: BUN/Creatinine Ratio 21.3; Bilirubin, Total 0.6 mg/dL (0.2-1.0); Total Protein 6.4 g/dL (6.4-8.2)
[2020-12-05 11:33] LABS: INR 1.13 (0.9-1.15); Partial Thromboplastin Time 26.3 sec (23.0-31.2)
[2020-12-08 14:58] LABS: Hepatitis A Ab IgM Negative
[2020-12-08 14:59] LABS: Hepatitis B Core IgM Negative; Hepatitis B Surface Antigen Negative (Negative); Hepatitis C Antibody Negative (Negative)
== END | disposition home or self-care (01) ==
LOC: LAB 10:23
PROVIDERS: ATTEND Internal Medicine
DX: C78.02 Secondary malignant neoplasm of left lung (principal); E03.9 Hypothyroidism, unspecified; I50.31 Acute diastolic (congestive) heart failure; D84.81 Immunodeficiency due to conditions classified elsewhere
CPT/HCPCS: 36415; 80053; 80074; 83615; 84436; 84443; 85025; 85610; 85730

== ENCOUNTER → 2020-12-12 | Outpatient (CLI) | payer MEDICARE, OTHER ==
[2020-12-12 10:57] LABS: Basophils # (auto) 0 10 ^3/uL (0-0.2); Basophils % (auto) 0.4 % (0.0-2.0); Eosinophils # (auto) 0.2 10 ^3/uL (0-0.8); Eosinophils % (auto) 1.6 % (0.0-7.0); Hematocrit 33.6 % (41.0-53.0); Hemoglobin 11.6 g/dL (13.5-17.5); Lymphocytes # (auto) 1.9 10 ^3/uL (0.4-5.4); Lymphocytes % (auto) 14.5 % (10.0-50.0); Mean Corpuscular Hemoglobin 31.5 pg (28.0-32.0); Mean Corpuscular Hgb Conc. 34.4 g/dL (32.0-36.0); Mean Corpuscular Volume 91.4 fL (80.0-100.0); Neutrophils # (auto) 9.7 10 ^3/uL (1.6-8.6); Neutrophils % (auto) 75.5 % (37.0-80.0); Platelet Count (auto) 180 10^3/uL (140-450); Red Blood Cells 3.68 10^6/uL (4.5-5.90); Red Cell Distribution Width 14.1 % (11.8-14.3); White Blood Cell 12.9 10^3/uL (4.4-10.8)
[2020-12-12 11:21] LABS: INR 1.09 (0.9-1.15); Partial Thromboplastin Time 26.4 sec (23.0-31.2)
[2020-12-12 15:48] LABS: Potassium 4.6 mmol/L (3.5-5.1)
[2020-12-12 16:01] LABS: BUN/Creatinine Ratio 21.6; Bilirubin, Total 0.6 mg/dL (0.2-1.0); Calcium 8.6 mg/dL (8.5-10.1); Total Protein 6.4 g/dL (6.4-8.2)
[2020-12-15 13:00] LABS: Hepatitis A Ab IgM Negative; Hepatitis B Core IgM Negative; Hepatitis B Surface Antigen Negative (Negative); Hepatitis C Antibody Negative (Negative)
== END | disposition home or self-care (01) ==
LOC: LAB 10:35
PROVIDERS: ATTEND Internal Medicine
DX: C78.02 Secondary malignant neoplasm of left lung (principal); I50.31 Acute diastolic (congestive) heart failure; E03.9 Hypothyroidism, unspecified; D84.81 Immunodeficiency due to conditions classified elsewhere
CPT/HCPCS: 36415; 80053; 80074; 83615; 84436; 84443; 85025; 85610; 85730

== ENCOUNTER → 2020-12-29 | Outpatient (CLI) | payer MEDICARE, OTHER ==
[~2020-12-29] MED LIST changes: +LISI-646 PO; -LISI20TA28 PO
[2020-12-29 09:51] LABS: Basophils # (auto) 0 10 ^3/uL (0-0.2); Basophils % (auto) 0.4 % (0.0-2.0); Eosinophils # (auto) 0.2 10 ^3/uL (0-0.8); Eosinophils % (auto) 1.8 % (0.0-7.0); Hematocrit 35.9 % (41.0-53.0); Lymphocytes # (auto) 1.6 10 ^3/uL (0.4-5.4); Lymphocytes % (auto) 16.1 % (10.0-50.0); Mean Corpuscular Hemoglobin 30.9 pg (28.0-32.0); Mean Corpuscular Hgb Conc. 33.4 g/dL (32.0-36.0); Mean Corpuscular Volume 92.4 fL (80.0-100.0); Monocytes # (auto) 0.8 10 ^3/uL (0-1.3); Monocytes % (auto) 8.3 % (0.0-12.0); Neutrophils # (auto) 7.4 10 ^3/uL (1.6-8.6); Neutrophils % (auto) 73.4 % (37.0-80.0); Platelet Count (auto) 190 10^3/uL (140-450); Red Blood Cells 3.88 10^6/uL (4.5-5.90); Red Cell Distribution Width 14.6 % (11.8-14.3); White Blood Cell 10.1 10^3/uL (4.4-10.8)
[2020-12-29 10:23] LABS: INR 1.12 (0.9-1.15); Partial Thromboplastin Time 27.9 sec (23.0-31.2)
[2020-12-29 11:42] LABS: Calcium 8.7 mg/dL (8.5-10.1); Potassium 4.4 mmol/L (3.5-5.1)
[2020-12-29 11:47] LABS: Bilirubin, Total 0.6 mg/dL (0.2-1.0); Total Protein 6.2 g/dL (6.4-8.2)
[2020-12-29 14:03] LABS: Hepatitis B Surface Antibody Negative
[2020-12-29 14:39] LABS: Hepatitis A Total Antibody Negative
[2020-12-29 15:34] LABS: Hepatitis B Core Total AB Negative; Hepatitis B Surface Antigen Negative (Negative); Hepatitis C Antibody Negative (Negative)
[2020-12-29 15:50] LABS: BUN/Creatinine Ratio 23.2
== END | disposition home or self-care (01) ==
LOC: LAB 09:18
PROVIDERS: ATTEND Internal Medicine
DX: C78.02 Secondary malignant neoplasm of left lung (principal); E55.9 Vitamin D deficiency, unspecified; I12.9 Hypertensive chronic kidney disease with stage 1 through stage 4 chronic kidney disease, or unspecified chronic kidney disease; E11.22 Type 2 diabetes mellitus with diabetic chronic kidney disease; N18.30 Chronic kidney disease, stage 3 unspecified; E78.2 Mixed hyperlipidemia
CPT/HCPCS: 36415; 80053; 83615; 84436; 84443; 85025; 85610; 85730; 86704; 86706; 86708; 86803; 87340

== ENCOUNTER → 2020-12-31 | Outpatient (CLI) | payer MEDICARE, OTHER ==
[2020-12-31 13:44] LABS: Protein, Urine 10.9 mg/dL (0.0-11.9)
[2020-12-31 14:19] LABS: Chloride 105 mmol/L (98-107); Potassium 3.9 mmol/L (3.5-5.1); Sodium 141 mmol/L (136-145)
[2020-12-31 14:20] LABS: Alanine Aminotransferase 15 U/L (16-61); Alkaline Phosphatase 68 U/L (45-117); Anion Gap 10 (5-15); Aspartate Aminotransferase 24 U/L (15-37); BUN/Creatinine Ratio 27.7; Bilirubin, Total 0.7 mg/dL (0.2-1.0); Blood Urea Nitrogen 31 mg/dL (7-18); Calcium 8.4 mg/dL (8.5-10.1); Carbon Dioxide 26 mmol/L (21-32); GFR African American 80 mL/min; GFR Non-African American 66 mL/min; Glucose 199 mg/dL (74-106); Phosphorus 3.5 mg/dL (2.5-4.90); Total Protein 6.2 g/dL (6.4-8.2); Uric Acid 5.5 mg/dL (3.5-7.2)
== END | disposition home or self-care (01) ==
LOC: LAB 10:49
PROVIDERS: ATTEND Internal Medicine Nephrology
DX: I12.9 Hypertensive chronic kidney disease with stage 1 through stage 4 chronic kidney disease, or unspecified chronic kidney disease (principal); E11.22 Type 2 diabetes mellitus with diabetic chronic kidney disease; N18.30 Chronic kidney disease, stage 3 unspecified; D63.1 Anemia in chronic kidney disease; M10.9 Gout, unspecified; E21.3 Hyperparathyroidism, unspecified; R80.9 Proteinuria, unspecified; E55.9 Vitamin D deficiency, unspecified
CPT/HCPCS: 36415; 80053; 82570; 83036; 83970; 84100; 84156; 84550

== ENCOUNTER → 2021-01-05 | Outpatient (CLI) | payer MEDICARE, OTHER ==
[2021-01-05 08:18] LABS: Basophils # (auto) 0.1 10 ^3/uL (0-0.2); Basophils % (auto) 0.6 % (0.0-2.0); Eosinophils # (auto) 0.2 10 ^3/uL (0-0.8); Eosinophils % (auto) 1.9 % (0.0-7.0); Hematocrit 35.1 % (41.0-53.0); Hemoglobin 11.9 g/dL (13.5-17.5); Lymphocytes # (auto) 2.4 10 ^3/uL (0.4-5.4); Mean Corpuscular Hemoglobin 31.2 pg (28.0-32.0); Mean Corpuscular Hgb Conc. 33.7 g/dL (32.0-36.0); Mean Corpuscular Volume 92.4 fL (80.0-100.0); Monocytes # (auto) 0.8 10 ^3/uL (0-1.3); Monocytes % (auto) 7.5 % (0.0-12.0); Neutrophils # (auto) 7.3 10 ^3/uL (1.6-8.6); Platelet Count (auto) 193 10^3/uL (140-450); Red Cell Distribution Width 14.6 % (11.8-14.3); White Blood Cell 10.8 10^3/uL (4.4-10.8)
[2021-01-05 09:33] LABS: Potassium 4.1 mmol/L (3.5-5.1)
[2021-01-05 09:43] LABS: BUN/Creatinine Ratio 26.8; Bilirubin, Total 0.6 mg/dL (0.2-1.0); Calcium 8.8 mg/dL (8.5-10.1); Total Protein 6.3 g/dL (6.4-8.2)
== END | disposition home or self-care (01) ==
LOC: LAB 07:28
PROVIDERS: ATTEND Internal Medicine
DX: E11.22 Type 2 diabetes mellitus with diabetic chronic kidney disease (principal); N18.30 Chronic kidney disease, stage 3 unspecified
CPT/HCPCS: 36415; 80053; 80061; 83036; 84439; 84443; 85025

== ENCOUNTER → 2021-01-16 | Outpatient (CLI) | payer MEDICARE, OTHER ==
[~2021-01-16] MED LIST changes: -LISI-646 PO; +LISI20TA28 PO
[2021-01-16 09:52] LABS: Basophils # (auto) 0.1 10 ^3/uL (0-0.2); Basophils % (auto) 0.5 % (0.0-2.0); Eosinophils # (auto) 0.2 10 ^3/uL (0-0.8); Eosinophils % (auto) 1.8 % (0.0-7.0); Hematocrit 35.7 % (41.0-53.0); Hemoglobin 12.2 g/dL (13.5-17.5); Lymphocytes # (auto) 2.4 10 ^3/uL (0.4-5.4); Lymphocytes % (auto) 22.8 % (10.0-50.0); Mean Corpuscular Hemoglobin 31.6 pg (28.0-32.0); Mean Corpuscular Hgb Conc. 34.1 g/dL (32.0-36.0); Mean Corpuscular Volume 92.5 fL (80.0-100.0); Monocytes # (auto) 0.9 10 ^3/uL (0-1.3); Monocytes % (auto) 8.4 % (0.0-12.0); Neutrophils % (auto) 66.5 % (37.0-80.0); Nucleated Red Blood Cells % 0.1 %; Platelet Count (auto) 197 10^3/uL (140-450); Red Blood Cells 3.86 10^6/uL (4.5-5.90); White Blood Cell 10.5 10^3/uL (4.4-10.8)
[2021-01-16 10:07] LABS: INR 1.14 (0.9-1.15)
[2021-01-16 10:57] LABS: Albumin 3.1 g/dL (3.4-5.0); BUN/Creatinine Ratio 23.6; Bilirubin, Total 0.6 mg/dL (0.2-1.0); Calcium 8.5 mg/dL (8.5-10.1); Total Protein 6.4 g/dL (6.4-8.2)
[2021-01-19 13:11] LABS: Hepatitis A Ab IgM Negative; Hepatitis B Core IgM Negative; Hepatitis B Surface Antigen Negative (Negative); Hepatitis C Antibody Negative (Negative)
== END | disposition home or self-care (01) ==
LOC: LAB 09:04
PROVIDERS: ATTEND Internal Medicine
DX: C78.02 Secondary malignant neoplasm of left lung (principal); E03.9 Hypothyroidism, unspecified; I50.31 Acute diastolic (congestive) heart failure; N18.30 Chronic kidney disease, stage 3 unspecified; D84.81 Immunodeficiency due to conditions classified elsewhere
CPT/HCPCS: 36415; 80053; 80074; 83615; 84436; 84443; 85025; 85610; 85730

== ENCOUNTER → 2021-01-23 | Outpatient (CLI) | payer MEDICARE, OTHER ==
[2021-01-23 10:10] LABS: Basophils # (auto) 0 10 ^3/uL (0-0.2); Basophils % (auto) 0.3 % (0.0-2.0); Eosinophils # (auto) 0.2 10 ^3/uL (0-0.8); Eosinophils % (auto) 2.1 % (0.0-7.0); Hematocrit 34.8 % (41.0-53.0); Hemoglobin 11.9 g/dL (13.5-17.5); Lymphocytes % (auto) 19.1 % (10.0-50.0); Mean Corpuscular Hemoglobin 31.5 pg (28.0-32.0); Mean Corpuscular Hgb Conc. 34.3 g/dL (32.0-36.0); Monocytes % (auto) 9.7 % (0.0-12.0); Neutrophils # (auto) 7.3 10 ^3/uL (1.6-8.6); Neutrophils % (auto) 68.8 % (37.0-80.0); Nucleated Red Blood Cells % 0.1 %; Platelet Count (auto) 185 10^3/uL (140-450); Red Blood Cells 3.78 10^6/uL (4.5-5.90); Red Cell Distribution Width 15.3 % (11.8-14.3); White Blood Cell 10.6 10^3/uL (4.4-10.8)
[2021-01-23 10:20] LABS: INR 1.14 (0.9-1.15); Partial Thromboplastin Time 27.3 sec (23.0-31.2)
[2021-01-23 10:36] LABS: Potassium 3.8 mmol/L (3.5-5.1)
[2021-01-23 10:43] LABS: Albumin 3.1 g/dL (3.4-5.0); BUN/Creatinine Ratio 28.3; Bilirubin, Total 0.6 mg/dL (0.2-1.0); Calcium 8.4 mg/dL (8.5-10.1); Total Protein 6.2 g/dL (6.4-8.2)
== END | disposition home or self-care (01) ==
LOC: LAB 09:16
PROVIDERS: ATTEND Internal Medicine
DX: C78.02 Secondary malignant neoplasm of left lung (principal); I50.31 Acute diastolic (congestive) heart failure
CPT/HCPCS: 36415; 80053; 83615; 85025; 85610; 85730; 86704; 86706; 86708; 86803; 87340

== ENCOUNTER → 2021-02-06 | Outpatient (CLI) | payer MEDICARE, OTHER ==
[2021-02-06 10:06] LABS: Basophils # (auto) 0.1 10 ^3/uL (0-0.2); Basophils % (auto) 0.6 % (0.0-2.0); Eosinophils # (auto) 0.2 10 ^3/uL (0-0.8); Eosinophils % (auto) 2.6 % (0.0-7.0); Hematocrit 35.8 % (41.0-53.0); Lymphocytes # (auto) 1.9 10 ^3/uL (0.4-5.4); Lymphocytes % (auto) 21.2 % (10.0-50.0); Mean Corpuscular Hemoglobin 31.3 pg (28.0-32.0); Mean Corpuscular Hgb Conc. 33.6 g/dL (32.0-36.0); Mean Corpuscular Volume 93.2 fL (80.0-100.0); Monocytes # (auto) 0.9 10 ^3/uL (0-1.3); Neutrophils # (auto) 5.8 10 ^3/uL (1.6-8.6); Neutrophils % (auto) 65.6 % (37.0-80.0); Nucleated Red Blood Cells % 0.1 %; Platelet Count (auto) 171 10^3/uL (140-450); Red Blood Cells 3.84 10^6/uL (4.5-5.90); Red Cell Distribution Width 15.2 % (11.8-14.3); White Blood Cell 8.8 10^3/uL (4.4-10.8)
[2021-02-06 10:14] LABS: Albumin 3.1 g/dL (3.4-5.0); Potassium 3.9 mmol/L (3.5-5.1)
[2021-02-06 10:18] LABS: BUN/Creatinine Ratio 25.7; Bilirubin, Total 0.6 mg/dL (0.2-1.0); Total Protein 6.3 g/dL (6.4-8.2)
[2021-02-06 10:21] LABS: INR 1.11 (0.9-1.15); Partial Thromboplastin Time 28.8 sec (23.0-31.2)
[2021-02-09 12:40] LABS: Hepatitis A Ab IgM Negative; Hepatitis B Core IgM Negative
[2021-02-09 12:41] LABS: Hepatitis B Surface Antigen Negative (Negative); Hepatitis C Antibody Negative (Negative)
== END | disposition home or self-care (01) ==
LOC: LAB 09:11
PROVIDERS: ATTEND Internal Medicine
DX: C78.02 Secondary malignant neoplasm of left lung (principal); E03.9 Hypothyroidism, unspecified; N18.30 Chronic kidney disease, stage 3 unspecified; I50.31 Acute diastolic (congestive) heart failure; D78.02 Intraoperative hemorrhage and hematoma of the spleen complicating other procedure; D84.81 Immunodeficiency due to conditions classified elsewhere
CPT/HCPCS: 36415; 80053; 80074; 83615; 84436; 84443; 85025; 85610; 85730

== ENCOUNTER → 2021-02-13 | Outpatient (CLI) | payer MEDICARE, OTHER ==
[2021-02-13 11:16] LABS: Basophils # (auto) 0.1 10 ^3/uL (0-0.2); Basophils % (auto) 0.4 % (0.0-2.0); Eosinophils # (auto) 0.2 10 ^3/uL (0-0.8); Eosinophils % (auto) 1.8 % (0.0-7.0); Hematocrit 34.9 % (41.0-53.0); Hemoglobin 12.2 g/dL (13.5-17.5); Lymphocytes # (auto) 1.3 10 ^3/uL (0.4-5.4); Lymphocytes % (auto) 10.8 % (10.0-50.0); Mean Corpuscular Hemoglobin 32.1 pg (28.0-32.0); Mean Corpuscular Hgb Conc. 34.8 g/dL (32.0-36.0); Monocytes # (auto) 0.9 10 ^3/uL (0-1.3); Monocytes % (auto) 7.1 % (0.0-12.0); Neutrophils # (auto) 9.7 10 ^3/uL (1.6-8.6); Neutrophils % (auto) 79.9 % (37.0-80.0); Nucleated Red Blood Cells % 0.1 %; Platelet Count (auto) 179 10^3/uL (140-450); White Blood Cell 12.2 10^3/uL (4.4-10.8)
[2021-02-13 11:29] LABS: INR 1.11 (0.9-1.15); Partial Thromboplastin Time 29.9 sec (23.0-31.2)
[2021-02-13 12:39] LABS: Potassium 3.8 mmol/L (3.5-5.1)
[2021-02-13 12:50] LABS: Albumin 3.2 g/dL (3.4-5.0); Bilirubin, Total 0.6 mg/dL (0.2-1.0); Calcium 8.9 mg/dL (8.5-10.1); Total Protein 6.9 g/dL (6.4-8.2)
[2021-02-16 12:29] LABS: Hepatitis A Ab IgM Negative; Hepatitis B Core IgM Negative; Hepatitis B Surface Antigen Negative (Negative); Hepatitis C Antibody Negative (Negative)
== END | disposition home or self-care (01) ==
LOC: LAB 10:39
PROVIDERS: ATTEND Internal Medicine
DX: C78.02 Secondary malignant neoplasm of left lung (principal); I50.31 Acute diastolic (congestive) heart failure
CPT/HCPCS: 36415; 80053; 80074; 83615; 85025; 85610; 85730

== ENCOUNTER → 2021-02-27 | Outpatient (CLI) | payer MEDICARE, OTHER ==
[2021-02-27 09:26] LABS: Basophils # (auto) 0.1 10 ^3/uL (0-0.2); Basophils % (auto) 0.7 % (0.0-2.0); Eosinophils # (auto) 0.4 10 ^3/uL (0-0.8); Eosinophils % (auto) 3.4 % (0.0-7.0); Hematocrit 33.8 % (41.0-53.0); Hemoglobin 11.7 g/dL (13.5-17.5); Lymphocytes # (auto) 2.7 10 ^3/uL (0.4-5.4); Lymphocytes % (auto) 21.9 % (10.0-50.0); Mean Corpuscular Hemoglobin 31.9 pg (28.0-32.0); Mean Corpuscular Hgb Conc. 34.5 g/dL (32.0-36.0); Mean Corpuscular Volume 92.3 fL (80.0-100.0); Monocytes % (auto) 8.6 % (0.0-12.0); Neutrophils % (auto) 65.4 % (37.0-80.0); Platelet Count (auto) 203 10^3/uL (140-450); Red Blood Cells 3.66 10^6/uL (4.5-5.90); Red Cell Distribution Width 14.3 % (11.8-14.3); White Blood Cell 12.1 10^3/uL (4.4-10.8)
[2021-02-27 09:46] LABS: INR 1.17 (0.9-1.15); Partial Thromboplastin Time 27.9 sec (23.0-31.2)
[2021-02-27 09:57] LABS: Albumin 2.9 g/dL (3.4-5.0); Calcium 8.2 mg/dL (8.5-10.1); Potassium 3.7 mmol/L (3.5-5.1)
[2021-02-27 10:01] LABS: BUN/Creatinine Ratio 20.9; Bilirubin, Total 0.6 mg/dL (0.2-1.0); Total Protein 6.5 g/dL (6.4-8.2)
[2021-02-27 10:11] LABS: Thyroid Stimulating Hormone 2.72 uIU/mL (0.358-3.74)
[2021-03-02 18:16] LABS: Hepatitis A Ab IgM Negative
[2021-03-02 18:17] LABS: Hepatitis B Core IgM Negative
[2021-03-02 18:18] LABS: Hepatitis B Surface Antigen Negative (Negative)
[2021-03-02 18:19] LABS: Hepatitis C Antibody Negative (Negative)
== END | disposition home or self-care (01) ==
LOC: LAB 09:09
PROVIDERS: ATTEND Internal Medicine
DX: C78.02 Secondary malignant neoplasm of left lung (principal); I50.31 Acute diastolic (congestive) heart failure; N18.30 Chronic kidney disease, stage 3 unspecified
CPT/HCPCS: 36415; 80053; 80074; 83615; 84436; 84443; 85025; 85610; 85730

== ENCOUNTER 2021-03-10 14:40 | Inpatient (IN) | payer MEDICARE, OTHER ==
[~2021-03-10] VITALS: Ht 165.1 cm; Wt 82.1 kg
[2021-03-10] MEDS ORDERED: dilTIAZem 25 MG/5 ML VIAL IV ONE (15:15)
[2021-03-10 15:50] LABS: Basophils # (auto) 0 10 ^3/uL (0-0.2); Basophils % (auto) 0.2 % (0.0-2.0); Eosinophils # (auto) 0.2 10 ^3/uL (0-0.8); Eosinophils % (auto) 1.4 % (0.0-7.0); Hematocrit 32.5 % (41.0-53.0); Hemoglobin 11.3 g/dL (13.5-17.5); Lymphocytes # (auto) 1.2 10 ^3/uL (0.4-5.4); Lymphocytes % (auto) 7.6 % (10.0-50.0); Mean Corpuscular Hemoglobin 32.3 pg (28.0-32.0); Mean Corpuscular Hgb Conc. 34.8 g/dL (32.0-36.0); Mean Corpuscular Volume 92.6 fL (80.0-100.0); Monocytes % (auto) 6.3 % (0.0-12.0); Neutrophils # (auto) 13.1 10 ^3/uL (1.6-8.6); Neutrophils % (auto) 84.5 % (37.0-80.0); Red Blood Cells 3.51 10^6/uL (4.5-5.90); Red Cell Distribution Width 14.4 % (11.8-14.3); White Blood Cell 15.5 10^3/uL (4.4-10.8)
[2021-03-10 16:04] LABS: Albumin 2.8 g/dL (3.4-5.0); Calcium 8.4 mg/dL (8.5-10.1); Magnesium 1.8 mg/dL (1.6-2.6); Potassium 4.2 mmol/L (3.5-5.1)
[2021-03-10 16:06] LABS: Lactic Acid w/Reflex 2.2 mmol/L (0.4-2.0)
[2021-03-10 16:10] LABS: BUN/Creatinine Ratio 22.6; Bilirubin, Total 1.3 mg/dL (0.2-1.0); Total Protein 6.5 g/dL (6.4-8.2)
[2021-03-10] MEDS ORDERED: SODIUM CHLORIDE 0.9% 500 ML IV ONE (17:15)
[2021-03-10] MEDS ORDERED: ACETAMINOPHEN 500 MG TAB PO PRN (19:15)
[2021-03-10] MEDS ORDERED: HYDROcodone-ACET 5/325MG TAB PO PRN (19:15)
[2021-03-10] MEDS ORDERED: NITROGLYCERIN 0.4 MG SL TAB SL PRN (19:15)
[2021-03-10] MEDS ORDERED: DEXTROSE (50%) 50ML SYRG IV PRN (19:15)
[2021-03-10] MEDS ORDERED: SODIUM CHLORIDE 0.9% 1,000 ML IV SCH (19:15)
[2021-03-10] MEDS ORDERED: MORPHINE SULFATE INJECTION 2 MG/ML SYRG IV PRN (19:15)
[2021-03-10] MEDS: ACCU-CHEK COMFORT CURVE STRIP VI SCH (23:00)
[2021-03-10] MEDS: InsuLIN REG 1unit/0.01ml Soln (100units/ml) SC SCH (23:45)
[2021-03-10] MEDS: APIXABAN 2.5 MG TAB PO SCH (23:45)
[2021-03-11] MEDS: MORPHINE SULFATE INJECTION 2 MG/ML SYRG IV PRN ×2 (02:03→18:53)
[2021-03-11 02:05] VITALS: BP 103/44
[2021-03-11 06:19] LABS: Basophils # (auto) 0.1 10 ^3/uL (0-0.2); Basophils % (auto) 0.4 % (0.0-2.0); Eosinophils # (auto) 0.3 10 ^3/uL (0-0.8); Eosinophils % (auto) 2.6 % (0.0-7.0); Hematocrit 30.7 % (41.0-53.0); Hemoglobin 10.6 g/dL (13.5-17.5); Lymphocytes # (auto) 1.1 10 ^3/uL (0.4-5.4); Lymphocytes % (auto) 8.8 % (10.0-50.0); Mean Corpuscular Hemoglobin 31.6 pg (28.0-32.0); Mean Corpuscular Hgb Conc. 34.7 g/dL (32.0-36.0); Mean Corpuscular Volume 91.2 fL (80.0-100.0); Monocytes # (auto) 0.8 10 ^3/uL (0-1.3); Monocytes % (auto) 6.7 % (0.0-12.0); Neutrophils # (auto) 10.2 10 ^3/uL (1.6-8.6); Neutrophils % (auto) 81.5 % (37.0-80.0); Red Blood Cells 3.37 10^6/uL (4.5-5.90); Red Cell Distribution Width 14.5 % (11.8-14.3); White Blood Cell 12.6 10^3/uL (4.4-10.8)
[2021-03-11 06:34] LABS: Calcium 7.8 mg/dL (8.5-10.1); Potassium 3.8 mmol/L (3.5-5.1)
[2021-03-11 06:36] LABS: BUN/Creatinine Ratio 31.5
[2021-03-11] MEDS: ALBUTEROL SULF 2.5 MG/0.5ML(0.5%) NEB SOLN NEB SCH ×3 (06:44→18:33)
[2021-03-11] MEDS: IPRATROPIUM BROM 0.5 MG/2.5ML INH SOL NEB SCH ×3 (06:44→18:33)
[2021-03-11] MEDS: InsuLIN REG 1unit/0.01ml Soln (100units/ml) SC SCH ×4 (07:00→22:00)
[2021-03-11] MEDS: ACCU-CHEK COMFORT CURVE STRIP VI SCH ×4 (07:04→22:45)
[2021-03-11] MEDS ORDERED: IOHEXOL 350 MG/ML 100ML IJ ONE (08:30)
[2021-03-11] MEDS: FAMOTIDINE 20 MG TAB PO SCH (10:20)
[2021-03-11] MEDS: FINASTERIDE 5 MG TAB PO SCH (10:20)
[2021-03-11] MEDS: cefTRIAXone 1GM/50ML D5W 50 ML IV SCH (10:21)
[2021-03-11] MEDS: APIXABAN 2.5 MG TAB PO SCH ×2 (10:21→22:45)
[2021-03-11] MEDS: AZITHROMYCIN 500MG/ 250ML 250 ML IV SCH (11:08)
[2021-03-11] MEDS ORDERED: FUROSEMIDE 20 MG/2 ML VIAL IV ONE (14:00)
[2021-03-11 16:00] VITALS: BP_SYST 115; BP_SYST 145; BP_DIAS 61; BP_DIAS 68
[2021-03-11 22:00] VITALS: BP 124/79
[2021-03-12 05:00] VITALS: BP 110/58
[2021-03-12 05:30] LABS: Basophils # (auto) 0 10 ^3/uL (0-0.2); Basophils % (auto) 0.4 % (0.0-2.0); Eosinophils # (auto) 0.4 10 ^3/uL (0-0.8); Eosinophils % (auto) 3.2 % (0.0-7.0); Hematocrit 29.1 % (41.0-53.0); Hemoglobin 10.2 g/dL (13.5-17.5); Lymphocytes # (auto) 1.3 10 ^3/uL (0.4-5.4); Lymphocytes % (auto) 11.4 % (10.0-50.0); Mean Corpuscular Hemoglobin 32.2 pg (28.0-32.0); Mean Corpuscular Hgb Conc. 35.1 g/dL (32.0-36.0); Mean Corpuscular Volume 91.6 fL (80.0-100.0); Monocytes # (auto) 1.2 10 ^3/uL (0-1.3); Neutrophils # (auto) 8.8 10 ^3/uL (1.6-8.6); Red Blood Cells 3.18 10^6/uL (4.5-5.90); Red Cell Distribution Width 14.6 % (11.8-14.3); White Blood Cell 11.8 10^3/uL (4.4-10.8)
[2021-03-12 05:49] LABS: Potassium 3.6 mmol/L (3.5-5.1)
[2021-03-12 05:53] LABS: BUN/Creatinine Ratio 27.9
[2021-03-12] MEDS: ALBUTEROL SULF 2.5 MG/0.5ML(0.5%) NEB SOLN NEB SCH ×3 (06:03→19:45)
[2021-03-12] MEDS: IPRATROPIUM BROM 0.5 MG/2.5ML INH SOL NEB SCH ×3 (06:03→19:45)
[2021-03-12] MEDS: InsuLIN REG 1unit/0.01ml Soln (100units/ml) SC SCH ×4 (06:05→21:44)
[2021-03-12] MEDS: ACCU-CHEK COMFORT CURVE STRIP VI SCH ×4 (06:06→21:44)
[2021-03-12] MEDS: cefTRIAXone 1GM/50ML D5W 50 ML IV SCH (09:30)
[2021-03-12] MEDS: AZITHROMYCIN 500MG/ 250ML 250 ML IV SCH (09:30)
[2021-03-12] MEDS: APIXABAN 2.5 MG TAB PO SCH ×2 (09:30→21:45)
[2021-03-12] MEDS: FAMOTIDINE 20 MG TAB PO SCH (09:30)
[2021-03-12] MEDS: FINASTERIDE 5 MG TAB PO SCH (09:31)
[2021-03-12 09:32] VITALS: BP 100/54
[2021-03-12] MEDS: FUROSEMIDE 20 MG/2 ML VIAL IV SCH (09:49)
[2021-03-12 11:24] LABS: Urine Bacteria NONE SEEN /hpf (None Seen); Urine Blood Negative /uL (Negative); Urine Hyaline Cast FEW /lpf (0 - 2); Urine Specific Gravity 1.014 (1.001-1.035); Urine WBC 2 /hpf (0 - 3)
[2021-03-12] MEDS ORDERED: FUROSEMIDE 20 MG/2 ML VIAL IV ONE (12:15)
[2021-03-12 13:00] VITALS: BP 142/67
[2021-03-12 17:00] VITALS: BP 100/75
[2021-03-12] MEDS: CARVEDILOL 12.5 MG TAB PO SCH (21:52)
[2021-03-12 22:00] VITALS: BP 97/62
[2021-03-13 05:00] VITALS: BP 98/57
[2021-03-13] MEDS: ALBUTEROL SULF 2.5 MG/0.5ML(0.5%) NEB SOLN NEB SCH ×3 (06:17→18:28)
[2021-03-13] MEDS: IPRATROPIUM BROM 0.5 MG/2.5ML INH SOL NEB SCH ×3 (06:17→18:28)
[2021-03-13] MEDS: InsuLIN REG 1unit/0.01ml Soln (100units/ml) SC SCH ×4 (06:30→22:19)
[2021-03-13] MEDS: ACCU-CHEK COMFORT CURVE STRIP VI SCH ×4 (06:31→22:39)
[2021-03-13 07:37] LABS: Potassium 3.1 mmol/L (3.5-5.1)
[2021-03-13 07:41] LABS: Calcium 7.9 mg/dL (8.5-10.1)
[2021-03-13 09:53] VITALS: BP 126/57
[2021-03-13] MEDS: cefTRIAXone 1GM/50ML D5W 50 ML IV SCH (10:30)
[2021-03-13] MEDS: AZITHROMYCIN 500MG/ 250ML 250 ML IV SCH (10:30)
[2021-03-13] MEDS: FAMOTIDINE 20 MG TAB PO SCH (10:31)
[2021-03-13] MEDS: dilTIAZem 120MG ER CAP PO SCH (10:31)
[2021-03-13] MEDS: FUROSEMIDE 20 MG/2 ML VIAL IV SCH (10:31)
[2021-03-13] MEDS: CARVEDILOL 12.5 MG TAB PO SCH (10:32)
[2021-03-13] MEDS: APIXABAN 2.5 MG TAB PO SCH ×2 (10:32→22:37)
[2021-03-13] MEDS: FINASTERIDE 5 MG TAB PO SCH (10:32)
[2021-03-13 13:00] VITALS: BP 93/46
[2021-03-13] MEDS ORDERED: methylPREDNISolone SOD SUCC 40 MG/ML VL IV ONE (14:45)
[2021-03-13] MEDS ORDERED: POTASSIUM CHL 20 Meq TABLET PO ONE (14:45)
[2021-03-13 16:37] VITALS: BP 99/43
[2021-03-13 22:00] VITALS: BP 105/62
[2021-03-13] MEDS: CARVEDILOL 3.125 MG TAB PO SCH (22:38)
[2021-03-13] MEDS: methylPREDNISolone SOD SUCC 40 MG/ML VL IV SCH (22:38)
[2021-03-14 03:33] VITALS: BP 105/62
[2021-03-14 05:20] VITALS: BP 109/79
[2021-03-14] MEDS: ALBUTEROL SULF 2.5 MG/0.5ML(0.5%) NEB SOLN NEB SCH ×3 (06:01→20:32)
[2021-03-14] MEDS: IPRATROPIUM BROM 0.5 MG/2.5ML INH SOL NEB SCH ×3 (06:01→20:32)
[2021-03-14] MEDS: ACCU-CHEK COMFORT CURVE STRIP VI SCH ×4 (06:37→22:36)
[2021-03-14] MEDS: methylPREDNISolone SOD SUCC 40 MG/ML VL IV SCH ×3 (06:37→22:36)
[2021-03-14] MEDS: InsuLIN REG 1unit/0.01ml Soln (100units/ml) SC SCH ×4 (06:42→21:26)
[2021-03-14 08:05] LABS: Calcium 8.5 mg/dL (8.5-10.1); Potassium 4.1 mmol/L (3.5-5.1)
[2021-03-14] MEDS: AZITHROMYCIN 500MG/ 250ML 250 ML IV SCH (08:56)
[2021-03-14] MEDS: cefTRIAXone 1GM/50ML D5W 50 ML IV SCH (08:56)
[2021-03-14] MEDS: dilTIAZem 120MG ER CAP PO SCH (08:57)
[2021-03-14] MEDS: FAMOTIDINE 20 MG TAB PO SCH (08:57)
[2021-03-14] MEDS: FINASTERIDE 5 MG TAB PO SCH (08:57)
[2021-03-14] MEDS: CARVEDILOL 3.125 MG TAB PO SCH ×2 (08:57→22:37)
[2021-03-14] MEDS: APIXABAN 2.5 MG TAB PO SCH ×2 (08:57→22:36)
[2021-03-14 09:00] VITALS: BP 116/49
[2021-03-14 13:00] VITALS: BP 94/47
[2021-03-14] MEDS ORDERED: DEXTROSE (50%) 50ML SYRG IV PRN (13:15)
[2021-03-14 17:00] VITALS: BP 97/57
[2021-03-14] MEDS: Glucerna Carbsteady SHAKE Vanilla 8oz PO SCH (18:01)
[2021-03-14 22:00] VITALS: BP 100/56
[2021-03-14] MEDS ORDERED: INSULIN LANTUS (GLARGINE) 1 /0.01ml (100units/ml) SC SCH (22:00)
[2021-03-14] MEDS ORDERED: INSULIN LANTUS (GLARGINE) 1 /0.01ml (100units/ml) SC ONE ×2 (22:30)
[2021-03-15 05:00] VITALS: BP 110/69
[2021-03-15] MEDS: ALBUTEROL SULF 2.5 MG/0.5ML(0.5%) NEB SOLN NEB SCH ×3 (06:27→18:14)
[2021-03-15] MEDS: InsuLIN REG 1unit/0.01ml Soln (100units/ml) SC SCH ×4 (06:27→21:48)
[2021-03-15] MEDS: IPRATROPIUM BROM 0.5 MG/2.5ML INH SOL NEB SCH ×3 (06:27→18:14)
[2021-03-15] MEDS: methylPREDNISolone SOD SUCC 40 MG/ML VL IV SCH ×2 (06:29→18:00)
[2021-03-15] MEDS: ACCU-CHEK COMFORT CURVE STRIP VI SCH ×4 (06:30→21:49)
[2021-03-15] MEDS ORDERED: INSULIN LANTUS (GLARGINE) 1 /0.01ml (100units/ml) SC SCH (07:00)
[2021-03-15 07:13] LABS: BUN/Creatinine Ratio 42.3; Calcium 8.5 mg/dL (8.5-10.1); Potassium 4.6 mmol/L (3.5-5.1)
[2021-03-15 08:00] VITALS: BP 105/57
[2021-03-15] MEDS: Glucerna Carbsteady SHAKE Vanilla 8oz PO SCH ×3 (08:00→18:00)
[2021-03-15 09:00] VITALS: BP 106/64
[2021-03-15] MEDS: AZITHROMYCIN 500MG/ 250ML 250 ML IV SCH (10:00)
[2021-03-15] MEDS: cefTRIAXone 1GM/50ML D5W 50 ML IV SCH (10:39)
[2021-03-15] MEDS: dilTIAZem 120MG ER CAP PO SCH (10:40)
[2021-03-15] MEDS: FINASTERIDE 5 MG TAB PO SCH (10:41)
[2021-03-15] MEDS: FAMOTIDINE 20 MG TAB PO SCH (10:41)
[2021-03-15] MEDS: CARVEDILOL 3.125 MG TAB PO SCH ×2 (10:41→21:47)
[2021-03-15] MEDS: APIXABAN 2.5 MG TAB PO SCH ×2 (10:41→21:47)
[2021-03-15 13:00] VITALS: BP 109/64
[2021-03-15] MEDS: INSULIN LANTUS (GLARGINE) 1 /0.01ml (100units/ml) SC SCH ×2 (13:19→21:49)
[2021-03-15] MEDS ORDERED: InsuLIN REG 1unit/0.01ml Soln (100units/ml) IV ONE (16:30)
[2021-03-15 17:00] VITALS: BP 119/67
[2021-03-15 22:00] VITALS: BP 114/71
[2021-03-16 05:00] VITALS: BP 110/79
[2021-03-16] MEDS: methylPREDNISolone SOD SUCC 40 MG/ML VL IV SCH (06:26)
[2021-03-16] MEDS: INSULIN LANTUS (GLARGINE) 1 /0.01ml (100units/ml) SC SCH ×2 (06:27→22:04)
[2021-03-16] MEDS: InsuLIN REG 1unit/0.01ml Soln (100units/ml) SC SCH ×4 (06:27→22:05)
[2021-03-16] MEDS: ACCU-CHEK COMFORT CURVE STRIP VI SCH ×4 (06:30→22:04)
[2021-03-16] MEDS: ALBUTEROL SULF 2.5 MG/0.5ML(0.5%) NEB SOLN NEB SCH ×3 (07:01→18:35)
[2021-03-16] MEDS: IPRATROPIUM BROM 0.5 MG/2.5ML INH SOL NEB SCH ×3 (07:01→18:35)
[2021-03-16] MEDS: Glucerna Carbsteady SHAKE Vanilla 8oz PO SCH ×3 (08:00→18:00)
[2021-03-16 09:00] VITALS: BP 106/78
[2021-03-16] MEDS: dilTIAZem 120MG ER CAP PO SCH (09:08)
[2021-03-16] MEDS: cefTRIAXone 1GM/50ML D5W 50 ML IV SCH (09:08)
[2021-03-16] MEDS: APIXABAN 2.5 MG TAB PO SCH ×2 (09:09→22:03)
[2021-03-16] MEDS: CARVEDILOL 3.125 MG TAB PO SCH ×2 (09:09→22:03)
[2021-03-16] MEDS: FAMOTIDINE 20 MG TAB PO SCH (09:10)
[2021-03-16] MEDS: FINASTERIDE 5 MG TAB PO SCH (09:10)
[2021-03-16] MEDS: AZITHROMYCIN 500MG/ 250ML 250 ML IV SCH (10:00)
[2021-03-16 13:00] VITALS: BP 110/70
[2021-03-16 17:21] VITALS: BP 124/75
[2021-03-16] MEDS ORDERED: DEXTROSE (50%) 50ML SYRG IV PRN (17:45)
[2021-03-16] MEDS ORDERED: InsuLIN REG 1unit/0.01ml Soln (100units/ml) IV ONE (17:45)
[2021-03-16 22:47] VITALS: BP 125/51
[2021-03-17 03:47] VITALS: BP 125/51
[2021-03-17 05:00] VITALS: BP 122/77
[2021-03-17] MEDS: ALBUTEROL SULF 2.5 MG/0.5ML(0.5%) NEB SOLN NEB SCH ×3 (06:11→19:42)
[2021-03-17] MEDS: IPRATROPIUM BROM 0.5 MG/2.5ML INH SOL NEB SCH ×3 (06:11→19:42)
[2021-03-17] MEDS: InsuLIN REG 1unit/0.01ml Soln (100units/ml) SC SCH ×4 (06:21→22:19)
[2021-03-17] MEDS: INSULIN LANTUS (GLARGINE) 1 /0.01ml (100units/ml) SC SCH ×2 (06:21→22:20)
[2021-03-17] MEDS: ACCU-CHEK COMFORT CURVE STRIP VI SCH ×4 (06:23→22:14)
[2021-03-17 07:26] LABS: Potassium 4.4 mmol/L (3.5-5.1)
[2021-03-17 07:31] LABS: BUN/Creatinine Ratio 47.7; Calcium 8.1 mg/dL (8.5-10.1)
[2021-03-17] MEDS: Glucerna Carbsteady SHAKE Vanilla 8oz PO SCH ×3 (08:00→18:13)
[2021-03-17 09:00] VITALS: BP 105/60
[2021-03-17] MEDS: cefTRIAXone 1GM/50ML D5W 50 ML IV SCH (09:36)
[2021-03-17] MEDS: FAMOTIDINE 20 MG TAB PO SCH (09:39)
[2021-03-17] MEDS: dilTIAZem 120MG ER CAP PO SCH (09:39)
[2021-03-17] MEDS: AZITHROMYCIN 250 MG TAB PO SCH (09:40)
[2021-03-17] MEDS: APIXABAN 2.5 MG TAB PO SCH ×2 (09:40→22:19)
[2021-03-17] MEDS: FINASTERIDE 5 MG TAB PO SCH (09:40)
[2021-03-17] MEDS: predniSONE 20 MG TAB PO SCH (09:40)
[2021-03-17] MEDS: CARVEDILOL 3.125 MG TAB PO SCH ×2 (10:00→22:19)
[2021-03-17 13:00] VITALS: BP 117/64
[2021-03-17 17:00] VITALS: BP 116/65
[2021-03-17 23:00] VITALS: BP 144/87
[2021-03-18 05:29] VITALS: BP 117/71
[2021-03-18] MEDS: IPRATROPIUM BROM 0.5 MG/2.5ML INH SOL NEB SCH ×3 (06:19→19:48)
[2021-03-18] MEDS: ALBUTEROL SULF 2.5 MG/0.5ML(0.5%) NEB SOLN NEB SCH ×3 (06:19→19:48)
[2021-03-18] MEDS: ACCU-CHEK COMFORT CURVE STRIP VI SCH ×4 (06:21→22:09)
[2021-03-18] MEDS: InsuLIN REG 1unit/0.01ml Soln (100units/ml) SC SCH ×4 (06:24→22:10)
[2021-03-18] MEDS: INSULIN LANTUS (GLARGINE) 1 /0.01ml (100units/ml) SC SCH ×2 (06:27→22:10)
[2021-03-18] MEDS: Glucerna Carbsteady SHAKE Vanilla 8oz PO SCH ×3 (08:00→18:00)
[2021-03-18 09:00] VITALS: BP 114/77
[2021-03-18] MEDS: dilTIAZem 120MG ER CAP PO SCH (10:17)
[2021-03-18] MEDS: cefTRIAXone 1GM/50ML D5W 50 ML IV SCH (10:17)
[2021-03-18] MEDS: predniSONE 20 MG TAB PO SCH (10:18)
[2021-03-18] MEDS: AZITHROMYCIN 250 MG TAB PO SCH (10:18)
[2021-03-18] MEDS: CARVEDILOL 3.125 MG TAB PO SCH ×2 (10:19→22:16)
[2021-03-18] MEDS: FAMOTIDINE 20 MG TAB PO SCH (10:19)
[2021-03-18] MEDS: FINASTERIDE 5 MG TAB PO SCH (10:19)
[2021-03-18] MEDS: APIXABAN 2.5 MG TAB PO SCH ×2 (10:19→22:15)
[2021-03-18 13:00] VITALS: BP 115/68
[2021-03-18 17:00] VITALS: BP 107/72
[2021-03-18 22:00] VITALS: BP 130/77
[2021-03-19 05:00] VITALS: BP 127/80
[2021-03-19] MEDS: ACCU-CHEK COMFORT CURVE STRIP VI SCH ×2 (05:56→11:30)
[2021-03-19] MEDS: INSULIN LANTUS (GLARGINE) 1 /0.01ml (100units/ml) SC SCH (05:56)
[2021-03-19] MEDS: InsuLIN REG 1unit/0.01ml Soln (100units/ml) SC SCH ×2 (05:56→12:12)
[2021-03-19] MEDS: ALBUTEROL SULF 2.5 MG/0.5ML(0.5%) NEB SOLN NEB SCH ×2 (06:28→11:10)
[2021-03-19] MEDS: IPRATROPIUM BROM 0.5 MG/2.5ML INH SOL NEB SCH ×2 (06:28→11:10)
[2021-03-19] MEDS: Glucerna Carbsteady SHAKE Vanilla 8oz PO SCH ×2 (08:00→12:11)
[2021-03-19 08:59] VITALS: BP 120/69
[2021-03-19] MEDS: AZITHROMYCIN 250 MG TAB PO SCH (08:59)
[2021-03-19] MEDS: FAMOTIDINE 20 MG TAB PO SCH (08:59)
[2021-03-19] MEDS: CARVEDILOL 3.125 MG TAB PO SCH (08:59)
[2021-03-19] MEDS: cefTRIAXone 1GM/50ML D5W 50 ML IV SCH (09:00)
[2021-03-19] MEDS: APIXABAN 2.5 MG TAB PO SCH (09:00)
[2021-03-19] MEDS: predniSONE 20 MG TAB PO SCH (09:01)
[2021-03-19] MEDS: dilTIAZem 120MG ER CAP PO SCH (09:17)
[2021-03-19] MEDS: FINASTERIDE 5 MG TAB PO SCH (09:18)
[2021-03-19 12:54] VITALS: BP 127/80
[2021-03-19 13:00] VITALS: BP 117/75
[2021-03-19 13:01] VITALS: BP 127/80
[2021-03-19 14:02] VITALS: BP 117/75
== END 2021-03-19 14:00 | disposition home or self-care (01) | DRG 193 ==
LOC: ER 14:40 → TELE 19:14 → TELE-WESTW 03-11 15:52
PROVIDERS: ADMIT Nurse Practitioner Acute Care; ATTEND Internal Medicine
DX: J18.9 Pneumonia, unspecified organism (principal); A41.9 Sepsis, unspecified organism; J96.21 Acute and chronic respiratory failure with hypoxia; N17.0 Acute kidney failure with tubular necrosis; R65.20 Severe sepsis without septic shock; I50.43 Acute on chronic combined systolic (congestive) and diastolic (congestive) heart failure; C34.90 Malignant neoplasm of unspecified part of unspecified bronchus or lung; E44.0 Moderate protein-calorie malnutrition; D68.69 Other thrombophilia; K86.1 Other chronic pancreatitis; I48.20 Chronic atrial fibrillation, unspecified; I11.0 Hypertensive heart disease with heart failure; E78.5 Hyperlipidemia, unspecified; Z68.30 Body mass index [BMI] 30.0-30.9, adult; C43.9 Malignant melanoma of skin, unspecified; D63.8 Anemia in other chronic diseases classified elsewhere; E11.9 Type 2 diabetes mellitus without complications; S80.211A Abrasion, right knee, initial encounter; E66.9 Obesity, unspecified; I07.1 Rheumatic tricuspid insufficiency; I71.4 Abdominal aortic aneurysm, without rupture; E07.9 Disorder of thyroid, unspecified; I27.20 Pulmonary hypertension, unspecified; W18.39XA Other fall on same level, initial encounter; R59.0 Localized enlarged lymph nodes; N40.0 Benign prostatic hyperplasia without lower urinary tract symptoms; Z20.822 Contact with and (suspected) exposure to COVID-19; Z79.01 Long term (current) use of anticoagulants; Z79.899 Other long term (current) drug therapy; Z80.0 Family history of malignant neoplasm of digestive organs; Z80.3 Family history of malignant neoplasm of breast; Z82.49 Family history of ischemic heart disease and other diseases of the circulatory system; Z83.3 Family history of diabetes mellitus; Z85.118 Personal history of other malignant neoplasm of bronchus and lung; Z85.820 Personal history of malignant melanoma of skin; Z87.891 Personal history of nicotine dependence; Y93.89 Activity, other specified; Y92.89 Other specified places as the place of occurrence of the external cause; Y99.8 Other external cause status; Z92.21 Personal history of antineoplastic chemotherapy; Z88.2 Allergy status to sulfonamides
CPT/HCPCS: 36415; 36600; 71045; 71046; 71260; 74177; 80048; 80053; 81001; 82728; 82805; 82962; 83605; 83735; 83880; 84484; 85025; 85379; 86141; 87040; 87426; 93005; 93306; 93970; 94003; 94640; 96360; 96361; 97110; 97116; 97530; G0378; J0696; J1815

== ENCOUNTER → 2021-04-15 | Outpatient (CLI) | payer MEDICARE, OTHER ==
[2021-04-15 15:36] LABS: Basophils # (auto) 0 10 ^3/uL (0-0.2); Basophils % (auto) 0.4 % (0.0-2.0); Eosinophils # (auto) 0.1 10 ^3/uL (0-0.8); Eosinophils % (auto) 1.5 % (0.0-7.0); Hematocrit 32.4 % (41.0-53.0); Hemoglobin 11.1 g/dL (13.5-17.5); Lymphocytes # (auto) 0.8 10 ^3/uL (0.4-5.4); Lymphocytes % (auto) 11.1 % (10.0-50.0); Mean Corpuscular Hemoglobin 31.7 pg (28.0-32.0); Mean Corpuscular Hgb Conc. 34.4 g/dL (32.0-36.0); Mean Corpuscular Volume 92.1 fL (80.0-100.0); Monocytes # (auto) 0.8 10 ^3/uL (0-1.3); Monocytes % (auto) 11.2 % (0.0-12.0); Neutrophils # (auto) 5.6 10 ^3/uL (1.6-8.6); Neutrophils % (auto) 75.8 % (37.0-80.0); Red Blood Cells 3.52 10^6/uL (4.5-5.90); Red Cell Distribution Width 15.8 % (11.8-14.3); White Blood Cell 7.4 10^3/uL (4.4-10.8)
[2021-04-15 16:10] LABS: Albumin 2.4 g/dL (3.4-5.0); Calcium 8.2 mg/dL (8.5-10.1); Potassium 4.1 mmol/L (3.5-5.1)
[2021-04-15 16:13] LABS: BUN/Creatinine Ratio 16.2; Bilirubin, Total 0.8 mg/dL (0.2-1.0); Total Protein 5.5 g/dL (6.4-8.2)
[2021-04-15 16:21] LABS: Thyroid Stimulating Hormone 1.83 uIU/mL (0.358-3.74)
== END | disposition home or self-care (01) ==
LOC: LAB 15:11
PROVIDERS: ATTEND Internal Medicine
DX: C43.9 Malignant melanoma of skin, unspecified (principal); E03.9 Hypothyroidism, unspecified
CPT/HCPCS: 36415; 80053; 83615; 84436; 84443; 85025

== ENCOUNTER 2021-04-17 12:35 | Inpatient (IN) | payer MEDICARE, OTHER ==
[~2021-04-17] VITALS: Ht 167.6 cm; Wt 82.0 kg
[2021-04-17 13:26] LABS: Basophils # (auto) 0.1 10 ^3/uL (0-0.2); Basophils % (auto) 0.7 % (0.0-2.0); Eosinophils # (auto) 0.3 10 ^3/uL (0-0.8); Eosinophils % (auto) 3.1 % (0.0-7.0); Hematocrit 33.9 % (41.0-53.0); Hemoglobin 11.6 g/dL (13.5-17.5); Lymphocytes # (auto) 1.6 10 ^3/uL (0.4-5.4); Lymphocytes % (auto) 18.6 % (10.0-50.0); Mean Corpuscular Hemoglobin 31.5 pg (28.0-32.0); Mean Corpuscular Hgb Conc. 34.2 g/dL (32.0-36.0); Mean Corpuscular Volume 92.1 fL (80.0-100.0); Monocytes # (auto) 1.3 10 ^3/uL (0-1.3); Monocytes % (auto) 14.4 % (0.0-12.0); Neutrophils # (auto) 5.6 10 ^3/uL (1.6-8.6); Neutrophils % (auto) 63.2 % (37.0-80.0); Red Blood Cells 3.68 10^6/uL (4.5-5.90); Red Cell Distribution Width 15.9 % (11.8-14.3); White Blood Cell 8.8 10^3/uL (4.4-10.8)
[2021-04-17 13:41] LABS: Albumin 2.3 g/dL (3.4-5.0); Anion Gap 8 (5-15); Blood Urea Nitrogen 18 mg/dL (7-18); Carbon Dioxide 29 mmol/L (21-32); Chloride 100 mmol/L (98-107); Glucose 117 mg/dL (74-106); Magnesium 1.8 mg/dL (1.6-2.6); Potassium 3.9 mmol/L (3.5-5.1); Sodium 137 mmol/L (136-145)
[2021-04-17 13:44] LABS: Lactic Acid w/Reflex 2.6 mmol/L (0.4-2.0)
[2021-04-17 13:47] LABS: Alanine Aminotransferase 18 U/L (16-61); Alkaline Phosphatase 117 U/L (45-117); Aspartate Aminotransferase 29 U/L (15-37); BUN/Creatinine Ratio 16.1; Bilirubin, Total 0.7 mg/dL (0.2-1.0); GFR African American 80 mL/min; GFR Non-African American 66 mL/min; Total Protein 5.6 g/dL (6.4-8.2)
[2021-04-17] MEDS ORDERED: NITROGLYCERIN 0.4 MG SL TAB SL PRN ×2 (17:00→19:30)
[2021-04-17] MEDS ORDERED: MORPHINE SULF INJ 2 MG/ML SYRINGE 1ML IV PRN ×3 (17:00→19:30)
[2021-04-17 18:49] VITALS: BP 102/45
[2021-04-17] MEDS ORDERED: HYDROcodone-ACET 5/325MG TAB PO PRN (19:30)
[2021-04-17] MEDS ORDERED: ALUM & MAG HYDROX-SIMETH LIQ(MAALOX) 30 ML PO PRN (19:30)
[2021-04-17] MEDS ORDERED: DEXTROSE (50%) 50ML SYRG IV PRN (19:30)
[2021-04-17] MEDS ORDERED: ONDANSETRON HCL 4 MG/2 ML VIAL IV PRN (19:30)
[2021-04-17] MEDS ORDERED: methylPREDNISolone SOD SUCC 125 MG/2 ML VL IV ONE (19:30)
[2021-04-17] MEDS ORDERED: levoFLOXacin 750MG 150 ML IV ONE (19:30)
[2021-04-17] MEDS ORDERED: DOCUSATE SOD 100 MG CAP PO PRN (19:30)
[2021-04-17] MEDS ORDERED: ALBUTEROL SULF 2.5 MG/0.5ML(0.5%) NEB SOLN NEB PRN (19:30)
[2021-04-17] MEDS ORDERED: hydrALAZINE HCL 20 MG/ML VL IV PRN (19:45)
[2021-04-17 19:55] LABS: Urine Bacteria NONE SEEN /hpf (None Seen); Urine Blood Negative /uL (Negative); Urine Hyaline Cast MOD /lpf (0 - 2); Urine Specific Gravity 1.012 (1.001-1.035); Urine WBC <1 /hpf (0 - 3)
[2021-04-17 20:14] LABS: Amphetamine Screen, Urine NEGATIVE (NEGATIVE); Barbiturate Scree,Urine NEGATIVE (NEGATIVE); Benzodiazephine Screen, Urine NEGATIVE (NEGATIVE); Cannabinoid Screen, Urine NEGATIVE (NEGATIVE); Cocaine Screen, Urine NEGATIVE (NEGATIVE); Opiate Scree,Urine NEGATIVE (NEGATIVE); Phencyclidine Screen, Urine NEGATIVE (NEGATIVE)
[2021-04-17 20:16] VITALS: BP 102/45
[2021-04-17 21:45] LABS: Cholesterol 55 mg/dL (< 200); HDL Cholesterol 13 mg/dL (40-59); LDL Cholesterol 38 mg/dL (< 100); Triglycerides 95 mg/dL (< 150)
[2021-04-17 22:00] VITALS: BP 101/53
[2021-04-17] MEDS: ACCU-CHEK COMFORT CURVE STRIP VI SCH (22:00)
[2021-04-17] MEDS: InsuLIN REG 1unit/0.01ml Soln (100units/ml) SC SCH (22:00)
[2021-04-17] MEDS ORDERED: IPRATROPIUM BROM 0.5 MG/2.5ML INH SOL NEB PRN (22:00)
[2021-04-17] MEDS ORDERED: IPRATROPIUM BROM 0.5 MG/2.5ML INH SOL NEB SCH (22:00)
[2021-04-17] MEDS: GABAPENTIN 300 MG CAP PO SCH (22:20)
[2021-04-17] MEDS: APIXABAN 2.5 MG TAB PO SCH (22:20)
[2021-04-17] MEDS: ATORVASTATIN 20 MG TAB PO SCH (22:20)
[2021-04-18 05:00] VITALS: BP 103/53
[2021-04-18] MEDS: FUROSEMIDE 20 MG/2 ML VIAL IV SCH ×2 (06:17→17:52)
[2021-04-18] MEDS: methylPREDNISolone SOD SUCC 40 MG/ML VL IV SCH ×3 (06:17→22:14)
[2021-04-18] MEDS: LEVOTHYROXINE SODIUM 25 MCG TAB PO SCH (06:18)
[2021-04-18] MEDS: GABAPENTIN 300 MG CAP PO SCH ×3 (06:18→22:14)
[2021-04-18] MEDS: ACCU-CHEK COMFORT CURVE STRIP VI SCH ×4 (06:42→22:14)
[2021-04-18] MEDS: InsuLIN REG 1unit/0.01ml Soln (100units/ml) SC SCH ×4 (06:42→22:32)
[2021-04-18 09:00] VITALS: BP 109/61
[2021-04-18] MEDS: FINASTERIDE 5 MG TAB PO SCH (10:29)
[2021-04-18] MEDS: POTASSIUM CHL 20 Meq TABLET PO SCH (10:29)
[2021-04-18] MEDS: ASPirin-EC 81 mg tab PO SCH (10:29)
[2021-04-18] MEDS: APIXABAN 2.5 MG TAB PO SCH ×2 (10:29→22:14)
[2021-04-18] MEDS: dilTIAZem 120MG ER CAP PO SCH (10:38)
[2021-04-18] MEDS: LISINOPRIL 20 MG TAB PO SCH (10:38)
[2021-04-18] MEDS ORDERED: cefTRIAXone 1GM/50ML D5W 50 ML IV ONE (11:00)
[2021-04-18] MEDS ORDERED: AZITHROMYCIN 500MG/ 250ML 250 ML IV ONE (12:00)
[2021-04-18 12:47] VITALS: BP 122/100
[2021-04-18 16:53] VITALS: BP 101/53
[2021-04-18] MEDS: TAMSULOSIN HYDROCHLORIDE 0.4 MG CAP PO SCH (17:52)
[2021-04-18] MEDS ORDERED: levoFLOXacin 500MG 100 ML IV SCH (20:00)
[2021-04-18 22:00] VITALS: BP 104/71
[2021-04-18] MEDS: ATORVASTATIN 20 MG TAB PO SCH (22:14)
[2021-04-19] VITALS (9 sets, daily range): BP systolic 64–104; BP diastolic 38–71
[2021-04-19] MEDS: FUROSEMIDE 20 MG/2 ML VIAL IV SCH ×2 (06:52→18:00)
[2021-04-19] MEDS: GABAPENTIN 300 MG CAP PO SCH ×3 (06:54→21:30)
[2021-04-19] MEDS: ACCU-CHEK COMFORT CURVE STRIP VI SCH ×4 (06:54→21:31)
[2021-04-19] MEDS: methylPREDNISolone SOD SUCC 40 MG/ML VL IV SCH (06:54)
[2021-04-19] MEDS: LEVOTHYROXINE SODIUM 25 MCG TAB PO SCH (06:54)
[2021-04-19] MEDS: InsuLIN REG 1unit/0.01ml Soln (100units/ml) SC SCH ×4 (07:14→22:36)
[2021-04-19] MEDS: cefTRIAXone 1GM/50ML D5W 50 ML IV SCH (09:53)
[2021-04-19] MEDS: dilTIAZem 120MG ER CAP PO SCH (09:58)
[2021-04-19] MEDS: ASPirin-EC 81 mg tab PO SCH (09:59)
[2021-04-19] MEDS: APIXABAN 2.5 MG TAB PO SCH ×2 (09:59→21:30)
[2021-04-19] MEDS: FINASTERIDE 5 MG TAB PO SCH (10:00)
[2021-04-19] MEDS: POTASSIUM CHL 20 Meq TABLET PO SCH (10:00)
[2021-04-19] MEDS: LISINOPRIL 20 MG TAB PO SCH (10:01)
[2021-04-19] MEDS: AZITHROMYCIN 500MG/ 250ML 250 ML IV SCH (11:48)
[2021-04-19] MEDS ORDERED: LACTULOSE 20Gm/30ML SOLN PO ONE (12:00)
[2021-04-19] MEDS ORDERED: InsuLIN REG 1unit/0.01ml Soln (100units/ml) IV ONE (14:30)
[2021-04-19] MEDS ORDERED: SODIUM CHLORIDE 0.9% 1,000 ML IV ONE (16:00)
[2021-04-19] MEDS: TAMSULOSIN HYDROCHLORIDE 0.4 MG CAP PO SCH (19:00)
[2021-04-19] MEDS: ATORVASTATIN 20 MG TAB PO SCH (21:30)
[2021-04-19] MEDS: INSULIN LANTUS (GLARGINE) 1 /0.01ml (100units/ml) SC SCH (22:36)
[2021-04-20 05:00] VITALS: BP 102/50
[2021-04-20] MEDS: FUROSEMIDE 20 MG/2 ML VIAL IV SCH ×2 (06:43→18:55)
[2021-04-20] MEDS: LEVOTHYROXINE SODIUM 25 MCG TAB PO SCH (06:43)
[2021-04-20] MEDS: GABAPENTIN 300 MG CAP PO SCH ×2 (06:43→22:21)
[2021-04-20] MEDS: InsuLIN REG 1unit/0.01ml Soln (100units/ml) SC SCH ×4 (06:44→22:45)
[2021-04-20] MEDS: ACCU-CHEK COMFORT CURVE STRIP VI SCH ×4 (06:44→22:22)
[2021-04-20 08:10] VITALS: BP 114/56
[2021-04-20 08:50] VITALS: BP 114/56
[2021-04-20] MEDS: cefTRIAXone 1GM/50ML D5W 50 ML IV SCH (10:32)
[2021-04-20] MEDS: POTASSIUM CHL 20 Meq TABLET PO SCH (10:32)
[2021-04-20] MEDS: APIXABAN 2.5 MG TAB PO SCH ×2 (10:32→22:21)
[2021-04-20] MEDS: FINASTERIDE 5 MG TAB PO SCH (10:32)
[2021-04-20] MEDS: ASPirin-EC 81 mg tab PO SCH (10:32)
[2021-04-20] MEDS: AZITHROMYCIN 500MG/ 250ML 250 ML IV SCH (12:34)
[2021-04-20 13:00] VITALS: BP 97/51
[2021-04-20 16:58] VITALS: BP 91/59
[2021-04-20] MEDS: TAMSULOSIN HYDROCHLORIDE 0.4 MG CAP PO SCH (18:56)
[2021-04-20 22:00] VITALS: BP 100/58
[2021-04-20] MEDS: ATORVASTATIN 20 MG TAB PO SCH (22:21)
[2021-04-20] MEDS: INSULIN LANTUS (GLARGINE) 1 /0.01ml (100units/ml) SC SCH (22:44)
[2021-04-21 05:00] VITALS: BP 76/50
[2021-04-21 05:30] LABS: Basophils # (auto) 0 10 ^3/uL (0-0.2); Basophils % (auto) 0.4 % (0.0-2.0); Eosinophils # (auto) 0.4 10 ^3/uL (0-0.8); Eosinophils % (auto) 3.6 % (0.0-7.0); Hematocrit 30.5 % (41.0-53.0); Hemoglobin 10.6 g/dL (13.5-17.5); Lymphocytes # (auto) 1.3 10 ^3/uL (0.4-5.4); Lymphocytes % (auto) 11.7 % (10.0-50.0); Mean Corpuscular Hemoglobin 31.9 pg (28.0-32.0); Mean Corpuscular Hgb Conc. 34.6 g/dL (32.0-36.0); Monocytes # (auto) 1.2 10 ^3/uL (0-1.3); Monocytes % (auto) 11.2 % (0.0-12.0); Neutrophils # (auto) 7.8 10 ^3/uL (1.6-8.6); Neutrophils % (auto) 73.1 % (37.0-80.0); Red Blood Cells 3.31 10^6/uL (4.5-5.90); Red Cell Distribution Width 15.8 % (11.8-14.3); White Blood Cell 10.7 10^3/uL (4.4-10.8)
[2021-04-21] MEDS: FUROSEMIDE 20 MG/2 ML VIAL IV SCH (06:00)
[2021-04-21 06:06] LABS: Potassium 4.3 mmol/L (3.5-5.1)
[2021-04-21 06:14] LABS: Calcium 7.3 mg/dL (8.5-10.1); Magnesium 2.2 mg/dL (1.6-2.6)
[2021-04-21] MEDS: DEXTROSE (50%) 50ML SYRG IV PRN (06:20)
[2021-04-21] MEDS: ACCU-CHEK COMFORT CURVE STRIP VI SCH ×4 (06:21→21:42)
[2021-04-21] MEDS: InsuLIN REG 1unit/0.01ml Soln (100units/ml) SC SCH ×4 (06:21→22:17)
[2021-04-21] MEDS: LEVOTHYROXINE SODIUM 25 MCG TAB PO SCH (06:21)
[2021-04-21 08:00] VITALS: BP 84/45
[2021-04-21 09:00] VITALS: BP 76/40
[2021-04-21] MEDS ORDERED: levoFLOXacin 500 MG TAB PO SCH (10:00)
[2021-04-21] MEDS: ASPirin-EC 81 mg tab PO SCH (10:14)
[2021-04-21] MEDS: APIXABAN 2.5 MG TAB PO SCH ×2 (10:15→21:41)
[2021-04-21] MEDS: POTASSIUM CHL 20 Meq TABLET PO SCH (10:16)
[2021-04-21] MEDS: GABAPENTIN 300 MG CAP PO SCH (10:17)
[2021-04-21] MEDS: FINASTERIDE 5 MG TAB PO SCH (10:17)
[2021-04-21] MEDS: ACETAMINOPHEN 325 MG TAB PO PRN ×2 (10:18→20:18)
[2021-04-21] MEDS ORDERED: ALBUMIN 25% 100 ML IV ONE (10:45)
[2021-04-21] MEDS ORDERED: DIGOXIN (250MCG/ML) 2 ML AMPULE IV ONE ×2 (11:15→13:45)
[2021-04-21] MEDS ORDERED: THROAT LOZENGES(CEPASTAT) MT PRN (11:45)
[2021-04-21] MEDS ORDERED: AMIODARONE HCL 150 MG in D5W 5% 100 ML IV ONE (12:45)
[2021-04-21 13:00] VITALS: BP 66/36
[2021-04-21] MEDS ORDERED: AMIODARONE 450mg/250ml AE 250 ML IV SCH ×2 (13:00→19:00)
[2021-04-21 16:36] VITALS: BP 100/53
[2021-04-21] MEDS: TAMSULOSIN HYDROCHLORIDE 0.4 MG CAP PO SCH (17:41)
[2021-04-21] MEDS: DIGOXIN 0.125 MG TAB PO SCH (20:32)
[2021-04-21] MEDS: ATORVASTATIN 20 MG TAB PO SCH (21:41)
[2021-04-21 22:00] VITALS: BP 103/53
[2021-04-21] MEDS: INSULIN LANTUS (GLARGINE) 1 /0.01ml (100units/ml) SC SCH (22:17)
[2021-04-22] VITALS (8 sets, daily range): BP systolic 92–117; BP diastolic 45–64
[2021-04-22] MEDS: DIGOXIN 0.125 MG TAB PO SCH ×2 (01:16→06:27)
[2021-04-22] MEDS: LORazepam 0.5 MG TAB PO PRN ×2 (03:08→11:21)
[2021-04-22] MEDS: DEXTROSE (50%) 50ML SYRG IV PRN (04:01)
[2021-04-22 05:10] LABS: Basophils # (auto) 0 10 ^3/uL (0-0.2); Basophils % (auto) 0.4 % (0.0-2.0); Eosinophils # (auto) 0.4 10 ^3/uL (0-0.8); Eosinophils % (auto) 4.8 % (0.0-7.0); Hematocrit 27.6 % (41.0-53.0); Hemoglobin 9.9 g/dL (13.5-17.5); Lymphocytes # (auto) 1.3 10 ^3/uL (0.4-5.4); Lymphocytes % (auto) 13.5 % (10.0-50.0); Mean Corpuscular Hemoglobin 32.8 pg (28.0-32.0); Mean Corpuscular Hgb Conc. 35.7 g/dL (32.0-36.0); Monocytes # (auto) 1.1 10 ^3/uL (0-1.3); Monocytes % (auto) 11.5 % (0.0-12.0); Neutrophils # (auto) 6.6 10 ^3/uL (1.6-8.6); Neutrophils % (auto) 69.8 % (37.0-80.0); Red Cell Distribution Width 15.9 % (11.8-14.3); White Blood Cell 9.4 10^3/uL (4.4-10.8)
[2021-04-22 05:38] LABS: Potassium 4.1 mmol/L (3.5-5.1)
[2021-04-22 05:42] LABS: BUN/Creatinine Ratio 27.6; Bilirubin, Total 0.3 mg/dL (0.2-1.0); Phosphorus 2.7 mg/dL (2.5-4.90); Total Protein 4.4 g/dL (6.4-8.2)
[2021-04-22] MEDS: LEVOTHYROXINE SODIUM 25 MCG TAB PO SCH (06:27)
[2021-04-22] MEDS: InsuLIN REG 1unit/0.01ml Soln (100units/ml) SC SCH ×4 (06:27→21:43)
[2021-04-22] MEDS: ACCU-CHEK COMFORT CURVE STRIP VI SCH ×4 (06:27→21:43)
[2021-04-22] MEDS: APIXABAN 2.5 MG TAB PO SCH ×2 (09:22→21:44)
[2021-04-22] MEDS: ASPirin-EC 81 mg tab PO SCH (09:22)
[2021-04-22] MEDS: FINASTERIDE 5 MG TAB PO SCH (09:23)
[2021-04-22] MEDS: POTASSIUM CHL 20 Meq TABLET PO SCH (09:23)
[2021-04-22] MEDS ORDERED: levoFLOXacin 250 MG TAB PO SCH (10:00)
[2021-04-22 10:43] LABS: Urine Bacteria FEW /hpf (None Seen); Urine Blood Negative /uL (Negative); Urine Specific Gravity 1.012 (1.001-1.035); Urine WBC 1 /hpf (0 - 3)
[2021-04-22] MEDS ORDERED: DIGOXIN (250MCG/ML) 2 ML AMPULE IV ONE (16:15)
[2021-04-22] MEDS ORDERED: DIGOXIN 0.25 MG TAB PO ONE (16:30)
[2021-04-22] MEDS ORDERED: PHENYLEPHRINE IV 250 ML IV SCH (17:15)
[2021-04-22] MEDS ORDERED: dilTIAZem 25 MG/5 ML VIAL IV ONE (17:15)
[2021-04-22] MEDS ORDERED: dilTIAZem 125mg/125ml BAG KIT 100 ML IV SCH (17:15)
[2021-04-22] MEDS ORDERED: SODIUM CHLORIDE 0.9% 500 ML IV ONE (17:15)
[2021-04-22] MEDS: TAMSULOSIN HYDROCHLORIDE 0.4 MG CAP PO SCH (17:44)
[2021-04-22] MEDS: SODIUM CHLORIDE 0.9% 1,000 ML IV SCH ×2 (18:50→21:44)
[2021-04-22] MEDS ORDERED: PHENYLEPHRINE IV 250 ML IV PRN (19:15)
[2021-04-22 20:44] LABS: Urine Bacteria FEW /hpf (None Seen); Urine Blood Negative /uL (Negative); Urine Specific Gravity 1.013 (1.001-1.035); Urine WBC 1 /hpf (0 - 3)
[2021-04-22 21:16] LABS: Protein, Urine 22.1 mg/dL (0.0-11.9)
[2021-04-22] MEDS: INSULIN LANTUS (GLARGINE) 1 /0.01ml (100units/ml) SC SCH (21:43)
[2021-04-22] MEDS: ATORVASTATIN 20 MG TAB PO SCH (21:43)
[2021-04-22] MEDS: AMIODARONE HCL 200 MG TAB PO SCH (21:44)
[2021-04-22] MEDS: MEROPENEM 1GM IVPB 100 ML IV SCH (21:44)
[2021-04-23] VITALS (9 sets, daily range): BP systolic 96–117; BP diastolic 40–71
[2021-04-23 05:48] LABS: BUN/Creatinine Ratio 30.4; Calcium 7.3 mg/dL (8.5-10.1); Magnesium 2.1 mg/dL (1.6-2.6); Potassium 5.3 mmol/L (3.5-5.1)
[2021-04-23] MEDS: InsuLIN REG 1unit/0.01ml Soln (100units/ml) SC SCH ×4 (06:14→22:00)
[2021-04-23] MEDS: ACCU-CHEK COMFORT CURVE STRIP VI SCH ×4 (06:14→22:58)
[2021-04-23] MEDS: LEVOTHYROXINE SODIUM 25 MCG TAB PO SCH (06:30)
[2021-04-23] MEDS: ASPirin-EC 81 mg tab PO SCH (09:56)
[2021-04-23] MEDS: AMIODARONE HCL 200 MG TAB PO SCH ×2 (09:56→22:57)
[2021-04-23] MEDS: FINASTERIDE 5 MG TAB PO SCH (09:56)
[2021-04-23] MEDS: MEROPENEM 1GM IVPB 100 ML IV SCH ×2 (09:57→22:57)
[2021-04-23] MEDS: APIXABAN 2.5 MG TAB PO SCH ×2 (09:57→22:58)
[2021-04-23] MEDS ORDERED: DIGOXIN 0.125 MG TAB PO SCH (10:00)
[2021-04-23] MEDS ORDERED: predniSONE 20 MG TAB PO ONE (12:30)
[2021-04-23] MEDS: TAMSULOSIN HYDROCHLORIDE 0.4 MG CAP PO SCH (18:06)
[2021-04-23] MEDS: INSULIN LANTUS (GLARGINE) 1 /0.01ml (100units/ml) SC SCH (22:00)
[2021-04-23] MEDS: ATORVASTATIN 20 MG TAB PO SCH (22:58)
[2021-04-24 05:00] VITALS: BP 129/62
[2021-04-24 05:32] LABS: Basophils # (auto) 0 10 ^3/uL (0-0.2); Basophils % (auto) 0.4 % (0.0-2.0); Eosinophils # (auto) 0 10 ^3/uL (0-0.8); Hematocrit 33.1 % (41.0-53.0); Hemoglobin 11.6 g/dL (13.5-17.5); Lymphocytes # (auto) 0.6 10 ^3/uL (0.4-5.4); Lymphocytes % (auto) 7.7 % (10.0-50.0); Mean Corpuscular Hemoglobin 32.4 pg (28.0-32.0); Mean Corpuscular Volume 92.5 fL (80.0-100.0); Monocytes # (auto) 0.4 10 ^3/uL (0-1.3); Monocytes % (auto) 5.3 % (0.0-12.0); Neutrophils # (auto) 6.4 10 ^3/uL (1.6-8.6); Neutrophils % (auto) 86.6 % (37.0-80.0); Red Blood Cells 3.58 10^6/uL (4.5-5.90); Red Cell Distribution Width 15.8 % (11.8-14.3); White Blood Cell 7.4 10^3/uL (4.4-10.8)
[2021-04-24 06:12] LABS: BUN/Creatinine Ratio 33.3; Calcium 8.3 mg/dL (8.5-10.1); Magnesium 2.1 mg/dL (1.6-2.6); Phosphorus 3.9 mg/dL (2.5-4.90)
[2021-04-24 06:27] LABS: Potassium 5.9 mmol/L (3.5-5.1)
[2021-04-24] MEDS: InsuLIN REG 1unit/0.01ml Soln (100units/ml) SC SCH ×4 (06:34→22:51)
[2021-04-24] MEDS: LEVOTHYROXINE SODIUM 25 MCG TAB PO SCH (06:36)
[2021-04-24] MEDS: ACCU-CHEK COMFORT CURVE STRIP VI SCH ×4 (06:37→22:34)
[2021-04-24] MEDS ORDERED: SODIUM ZIRCONIUM CYCL 10 GM PAK PO ONE ×3 (07:00→16:00)
[2021-04-24 08:54] VITALS: BP 110/73
[2021-04-24] MEDS ORDERED: ALBUTEROL SULF 2.5 MG/0.5ML(0.5%) NEB SOLN NEB ONE ×2 (09:00→09:30)
[2021-04-24] MEDS ORDERED: SODIUM BICARBONATE 8.4% INJ 50ML SYRINGE IV ONE (09:30)
[2021-04-24] MEDS ORDERED: FUROSEMIDE 20 MG/2 ML VIAL IV ONE (09:45)
[2021-04-24] MEDS ORDERED: InsuLIN REG 1unit/0.01ml Soln (100units/ml) IV ONE (09:45)
[2021-04-24] MEDS ORDERED: SODIUM CHLORIDE 0.9% 500 ML IV ONE (09:45)
[2021-04-24] MEDS ORDERED: DIGOXIN 0.125 MG TAB PO ONE (10:00)
[2021-04-24] MEDS: DIGOXIN 0.125 MG TAB PO SCH (10:14)
[2021-04-24] MEDS: AMIODARONE HCL 200 MG TAB PO SCH ×2 (10:14→22:33)
[2021-04-24] MEDS: APIXABAN 2.5 MG TAB PO SCH ×2 (10:14→22:33)
[2021-04-24] MEDS: FINASTERIDE 5 MG TAB PO SCH (10:14)
[2021-04-24] MEDS: MEROPENEM 1GM IVPB 100 ML IV SCH ×2 (10:15→22:32)
[2021-04-24] MEDS: predniSONE 20 MG TAB PO SCH (10:15)
[2021-04-24] MEDS: ASPirin-EC 81 mg tab PO SCH (10:15)
[2021-04-24 12:48] VITALS: BP 109/64
[2021-04-24 16:43] VITALS: BP 98/65
[2021-04-24] MEDS: TAMSULOSIN HYDROCHLORIDE 0.4 MG CAP PO SCH (18:19)
[2021-04-24 22:03] VITALS: BP 112/63
[2021-04-24] MEDS: ATORVASTATIN 20 MG TAB PO SCH (22:33)
[2021-04-24] MEDS: SODIUM ZIRCONIUM CYCL 10 GM PAK PO SCH (22:34)
[2021-04-24] MEDS: INSULIN LANTUS (GLARGINE) 1 /0.01ml (100units/ml) SC SCH (23:08)
[2021-04-25 05:01] VITALS: BP 121/74
[2021-04-25] MEDS: ACCU-CHEK COMFORT CURVE STRIP VI SCH ×4 (06:14→21:52)
[2021-04-25] MEDS: SODIUM ZIRCONIUM CYCL 10 GM PAK PO SCH ×3 (06:14→21:51)
[2021-04-25] MEDS: LEVOTHYROXINE SODIUM 25 MCG TAB PO SCH (06:14)
[2021-04-25] MEDS: InsuLIN REG 1unit/0.01ml Soln (100units/ml) SC SCH ×4 (06:16→22:00)
[2021-04-25 09:00] VITALS: BP 11/60
[2021-04-25] MEDS: APIXABAN 2.5 MG TAB PO SCH ×2 (10:24→21:52)
[2021-04-25] MEDS: AMIODARONE HCL 200 MG TAB PO SCH ×2 (10:24→21:52)
[2021-04-25] MEDS: FINASTERIDE 5 MG TAB PO SCH (10:24)
[2021-04-25] MEDS: ASPirin-EC 81 mg tab PO SCH (10:24)
[2021-04-25] MEDS: predniSONE 20 MG TAB PO SCH (10:24)
[2021-04-25] MEDS: MEROPENEM 1GM IVPB 100 ML IV SCH ×2 (10:24→21:51)
[2021-04-25 13:00] VITALS: BP 108/60
[2021-04-25 16:44] VITALS: BP 127/69
[2021-04-25] MEDS: TAMSULOSIN HYDROCHLORIDE 0.4 MG CAP PO SCH (17:01)
[2021-04-25] MEDS: ATORVASTATIN 20 MG TAB PO SCH (21:52)
[2021-04-25 22:00] VITALS: BP 132/61
[2021-04-25] MEDS: INSULIN LANTUS (GLARGINE) 1 /0.01ml (100units/ml) SC SCH (22:00)
[2021-04-26 05:00] VITALS: BP 132/66
[2021-04-26 05:26] LABS: Calcium 7.6 mg/dL (8.5-10.1); Potassium 4.6 mmol/L (3.5-5.1)
[2021-04-26 05:28] LABS: BUN/Creatinine Ratio 33.3
[2021-04-26] MEDS: SODIUM ZIRCONIUM CYCL 10 GM PAK PO SCH ×2 (06:00→13:46)
[2021-04-26] MEDS: ACCU-CHEK COMFORT CURVE STRIP VI SCH ×4 (06:27→21:39)
[2021-04-26] MEDS: InsuLIN REG 1unit/0.01ml Soln (100units/ml) SC SCH ×4 (06:31→22:00)
[2021-04-26] MEDS: LEVOTHYROXINE SODIUM 25 MCG TAB PO SCH (06:31)
[2021-04-26 09:00] VITALS: BP 110/44
[2021-04-26] MEDS: MEROPENEM 1GM IVPB 100 ML IV SCH ×3 (09:27→21:34)
[2021-04-26] MEDS: predniSONE 20 MG TAB PO SCH (09:28)
[2021-04-26] MEDS: AMIODARONE HCL 200 MG TAB PO SCH ×2 (09:28→21:34)
[2021-04-26] MEDS: APIXABAN 2.5 MG TAB PO SCH ×2 (09:28→21:34)
[2021-04-26] MEDS: FINASTERIDE 5 MG TAB PO SCH (09:28)
[2021-04-26] MEDS: ASPirin-EC 81 mg tab PO SCH (09:28)
[2021-04-26 13:00] VITALS: BP 136/66
[2021-04-26] MEDS: TAMSULOSIN HYDROCHLORIDE 0.4 MG CAP PO SCH (16:54)
[2021-04-26 17:00] VITALS: BP 138/81
[2021-04-26] MEDS: ATORVASTATIN 20 MG TAB PO SCH (21:34)
[2021-04-26 22:00] VITALS: BP 145/93
[2021-04-26] MEDS: INSULIN LANTUS (GLARGINE) 1 /0.01ml (100units/ml) SC SCH (22:00)
[2021-04-27 05:00] VITALS: BP 151/72
[2021-04-27] MEDS ORDERED: PHENYLEPHRINE IV 250 ML IV SCH (05:15)
[2021-04-27 05:41] LABS: Calcium 7.8 mg/dL (8.5-10.1)
[2021-04-27] MEDS: InsuLIN REG 1unit/0.01ml Soln (100units/ml) SC SCH ×4 (06:23→22:12)
[2021-04-27] MEDS: ACCU-CHEK COMFORT CURVE STRIP VI SCH ×4 (06:23→21:54)
[2021-04-27] MEDS: LEVOTHYROXINE SODIUM 25 MCG TAB PO SCH (06:24)
[2021-04-27 07:00] VITALS: BP 128/74
[2021-04-27] MEDS: AMIODARONE HCL 200 MG TAB PO SCH ×2 (08:52→21:53)
[2021-04-27] MEDS: MEROPENEM 1GM IVPB 100 ML IV SCH ×2 (08:52→21:52)
[2021-04-27] MEDS: predniSONE 20 MG TAB PO SCH (08:52)
[2021-04-27] MEDS: APIXABAN 2.5 MG TAB PO SCH ×2 (08:53→21:54)
[2021-04-27] MEDS: DIGOXIN 0.125 MG TAB PO SCH (08:53)
[2021-04-27] MEDS: FINASTERIDE 5 MG TAB PO SCH (08:53)
[2021-04-27] MEDS: ASPirin-EC 81 mg tab PO SCH (08:53)
[2021-04-27 09:28] VITALS: BP 140/66
[2021-04-27] MEDS: amLODIPine BESYLATE 5 MG TAB PO SCH (10:00)
[2021-04-27 13:00] VITALS: BP 142/65
[2021-04-27 17:00] VITALS: BP 145/98
[2021-04-27] MEDS: TAMSULOSIN HYDROCHLORIDE 0.4 MG CAP PO SCH (17:45)
[2021-04-27] MEDS: ATORVASTATIN 20 MG TAB PO SCH (21:54)
[2021-04-27 22:01] VITALS: BP 133/83
[2021-04-27] MEDS: INSULIN LANTUS (GLARGINE) 1 /0.01ml (100units/ml) SC SCH (22:12)
[2021-04-28 05:07] VITALS: BP 133/80
[2021-04-28 05:27] LABS: Calcium 7.5 mg/dL (8.5-10.1); Potassium 3.8 mmol/L (3.5-5.1)
[2021-04-28 05:29] LABS: BUN/Creatinine Ratio 33.3
[2021-04-28] MEDS: InsuLIN REG 1unit/0.01ml Soln (100units/ml) SC SCH ×2 (06:51→11:33)
[2021-04-28] MEDS: LEVOTHYROXINE SODIUM 25 MCG TAB PO SCH (06:51)
[2021-04-28] MEDS: ACCU-CHEK COMFORT CURVE STRIP VI SCH ×2 (06:51→11:30)
[2021-04-28 09:04] VITALS: BP 141/71
[2021-04-28] MEDS: predniSONE 20 MG TAB PO SCH (10:01)
[2021-04-28] MEDS: MEROPENEM 1GM IVPB 100 ML IV SCH (10:01)
[2021-04-28] MEDS: AMIODARONE HCL 200 MG TAB PO SCH (10:01)
[2021-04-28] MEDS: APIXABAN 2.5 MG TAB PO SCH (10:02)
[2021-04-28] MEDS: amLODIPine BESYLATE 5 MG TAB PO SCH (10:02)
[2021-04-28] MEDS: FINASTERIDE 5 MG TAB PO SCH (10:02)
[2021-04-28] MEDS: ASPirin-EC 81 mg tab PO SCH (10:02)
[2021-04-28] MEDS ORDERED: FUROSEMIDE 40 MG/4 ML VIAL IV ONE (10:45)
[2021-04-28] MEDS ORDERED: POTASSIUM CHL 20 Meq TABLET PO ONE (10:45)
[2021-04-28 12:39] VITALS: BP 146/76
[2021-04-28 14:53] VITALS: BP 138/81
== END 2021-04-28 15:45 | DRG 871 ==
LOC: EDBD 12:35 → ER 12:35 → TELE-CENTR 16:48
PROVIDERS: ADMIT Hospitalist; ATTEND Internal Medicine
PROC: 05HB33Z Insertion of Infusion Device into Right Basilic Vein, Percutaneous Approach (ICD-10-PCS; principal; 2021-04-22)
PROC: B54MZZA Ultrasonography of Right Upper Extremity Veins, Guidance (ICD-10-PCS; 2021-04-22)
DX: A41.9 Sepsis, unspecified organism (principal); J18.9 Pneumonia, unspecified organism; J96.21 Acute and chronic respiratory failure with hypoxia; E43 Unspecified severe protein-calorie malnutrition; N17.0 Acute kidney failure with tubular necrosis; I50.33 Acute on chronic diastolic (congestive) heart failure; C78.00 Secondary malignant neoplasm of unspecified lung; E87.3 Alkalosis; L03.116 Cellulitis of left lower limb; I48.19 Other persistent atrial fibrillation; J44.0 Chronic obstructive pulmonary disease with (acute) lower respiratory infection; Z66 Do not resuscitate; Z20.822 Contact with and (suspected) exposure to COVID-19; C43.9 Malignant melanoma of skin, unspecified; N40.0 Benign prostatic hyperplasia without lower urinary tract symptoms; N52.9 Male erectile dysfunction, unspecified; E03.9 Hypothyroidism, unspecified; I71.4 Abdominal aortic aneurysm, without rupture; D63.8 Anemia in other chronic diseases classified elsewhere; E11.42 Type 2 diabetes mellitus with diabetic polyneuropathy; E78.00 Pure hypercholesterolemia, unspecified; M19.90 Unspecified osteoarthritis, unspecified site; E78.5 Hyperlipidemia, unspecified; E87.5 Hyperkalemia; I07.1 Rheumatic tricuspid insufficiency; I11.0 Hypertensive heart disease with heart failure; I27.20 Pulmonary hypertension, unspecified; Z79.01 Long term (current) use of anticoagulants; Z79.4 Long term (current) use of insulin; Z79.899 Other long term (current) drug therapy; Z80.9 Family history of malignant neoplasm, unspecified; Z82.49 Family history of ischemic heart disease and other diseases of the circulatory system; Z83.3 Family history of diabetes mellitus; Z85.118 Personal history of other malignant neoplasm of bronchus and lung; Z85.820 Personal history of malignant melanoma of skin; Z87.891 Personal history of nicotine dependence; Z92.21 Personal history of antineoplastic chemotherapy; Z68.29 Body mass index [BMI] 29.0-29.9, adult
CPT/HCPCS: 36415; 36600; 71045; 71250; 76775; 80048; 80053; 80061; 80307; 81001; 82570; 82805; 82962; 83036; 83605; 83615; 83735; 83880; 83935; 84100; 84132; 84156; 84300; 84436; 84443; 84484; 85025; 87040; 87070; 87077; 87081; 87086; 87088; 87186; 87205; 87426; 93005; 93971; 94640; 94644; 96365; 97110; 97116; 97163; 97530; G0378; J0696; J1815; J1956; J2185; J7060; P9047

== ENCOUNTER 2021-05-16 06:47 | Inpatient (IN) | payer MEDICARE, OTHER ==
[~2021-05-16] VITALS: Ht 165.1 cm; Wt 72.6 kg
[~2021-05-16 06:47] MED LIST changes: -CARV25TA55 PO
[2021-05-16] MEDS ORDERED: SODIUM CHLORIDE 0.9% 500 ML IVB ONE (07:30)
[2021-05-16] MEDS ORDERED: SODIUM CHLORIDE 0.9% 1,000 ML IV ONE (07:30)
[2021-05-16 08:24] LABS: Hematocrit 31.7 % (41.0-53.0); Hemoglobin 10.9 g/dL (13.5-17.5); Mean Corpuscular Hemoglobin 31.4 pg (28.0-32.0); Mean Corpuscular Hgb Conc. 34.3 g/dL (32.0-36.0); Mean Corpuscular Volume 91.5 fL (80.0-100.0); Red Blood Cells 3.47 10^6/uL (4.5-5.90)
[2021-05-16 08:47] LABS: Basophils % (manual) 0 (0.0-2.0); Myelocytes % 0
[2021-05-16 08:48] LABS: Blast Cells 0; Promyelocytes % 0; Reactive Lymphocytes 0
[2021-05-16 08:53] LABS: Potassium 4.7 mmol/L (3.5-5.1)
[2021-05-16 09:02] LABS: Albumin 2.1 g/dL (3.4-5.0); BUN/Creatinine Ratio 12.1; Calcium 7.9 mg/dL (8.5-10.1); Magnesium 1.7 mg/dL (1.6-2.6); Total Protein 5.2 g/dL (6.4-8.2)
[2021-05-16 09:12] LABS: Bilirubin, Total 1.2 mg/dL (0.2-1.0)
[2021-05-16 09:27] LABS: Band Neutrophils % (manual) 1; Eosinophils % (manual) 6 (0-7); Lymphocytes % (manual) 21 (10.0-50.0); Metamyelocytes % 1; Monocytes % (manual) 4 (0-12)
[2021-05-16] MEDS ORDERED: NITROGLYCERIN 0.4 MG SL TAB SL PRN (11:45)
[2021-05-16] MEDS ORDERED: CEFTRIAXONE SODIUM 2 GM in D5W 5% 50 ML IV ONE (12:45)
[2021-05-16] MEDS ORDERED: ACETAMINOPHEN 500 MG TAB PO PRN (12:45)
[2021-05-16] MEDS ORDERED: ALBUTEROL SULF 2.5 MG/0.5ML(0.5%) NEB SOLN NEB PRN (12:45)
[2021-05-16] MEDS ORDERED: DEXTROSE (50%) 50ML SYRG IV PRN (12:45)
[2021-05-16] MEDS ORDERED: LACTULOSE 20Gm/30ML SOLN PO PRN (12:45)
[2021-05-16] MEDS ORDERED: ONDANSETRON HCL 4 MG/2 ML VIAL IV PRN (12:45)
[2021-05-16 13:30] VITALS: BP 93/49
[2021-05-16] MEDS: CLINDAMYCIN 600MG IV 50 ML IV SCH (15:23)
[2021-05-16] MEDS: IPRATROPIUM BROM 0.5 MG/2.5ML INH SOL NEB SCH (18:00)
[2021-05-16] MEDS: ALBUTEROL SULF 2.5 MG/0.5ML(0.5%) NEB SOLN NEB SCH (18:00)
[2021-05-16] MEDS: ACCU-CHEK COMFORT CURVE STRIP VI SCH (18:31)
[2021-05-16] MEDS: MORPHINE SULFATE INJECTION 2 MG/ML SYRG IV PRN ×2 (18:50→23:55)
[2021-05-16] MEDS: InsuLIN REG 1unit/0.01ml Soln (100units/ml) SC SCH (19:01)
[2021-05-16] MEDS: traMADol HCL 50 MG TAB PO PRN (19:34)
[2021-05-16] MEDS: SODIUM CHLORIDE 0.9% 1,000 ML IV SCH (19:36)
[2021-05-16] MEDS ORDERED: MORPHINE SULFATE INJECTION 2 MG/ML SYRG IV ONE (19:45)
[2021-05-16] MEDS: ATORVASTATIN 20 MG TAB PO SCH (22:00)
[2021-05-16] MEDS: APIXABAN 2.5 MG TAB PO SCH (22:00)
[2021-05-17] MEDS: ACCU-CHEK COMFORT CURVE STRIP VI SCH ×5 (00:52→22:31)
[2021-05-17] MEDS: InsuLIN REG 1unit/0.01ml Soln (100units/ml) SC SCH ×5 (00:52→22:32)
[2021-05-17] MEDS ORDERED: MORPHINE SULFATE INJECTION 2 MG/ML SYRG IV ONE (01:00)
[2021-05-17] MEDS: CLINDAMYCIN 600MG IV 50 ML IV SCH ×2 (01:23→05:28)
[2021-05-17] MEDS ORDERED: NOREPINEPHRINE 8 MG/250ML KIT 250 ML IV ONE (01:50)
[2021-05-17] MEDS: SODIUM CHLORIDE 0.9% 1,000 ML IV SCH ×3 (02:00→22:31)
[2021-05-17] MEDS: NOREPINEPHRINE 8 MG/250ML KIT 250 ML IV SCH ×4 (02:00→18:30)
[2021-05-17] MEDS ORDERED: ALBUMIN 5% 250 ML IV ONE (06:45)
[2021-05-17 06:52] LABS: Hematocrit 32.1 % (41.0-53.0); Hemoglobin 10.9 g/dL (13.5-17.5); Mean Corpuscular Hemoglobin 31.3 pg (28.0-32.0); Mean Corpuscular Volume 92.2 fL (80.0-100.0); Red Blood Cells 3.49 10^6/uL (4.5-5.90); Red Cell Distribution Width 16.5 % (11.8-14.3)
[2021-05-17 07:02] LABS: Basophils % (manual) 0 (0.0-2.0); Blast Cells 0; Monocytes % (manual) 0 (0-12); Myelocytes % 0; Promyelocytes % 0; Reactive Lymphocytes 0
[2021-05-17] MEDS: ALBUTEROL SULF 2.5 MG/0.5ML(0.5%) NEB SOLN NEB SCH ×4 (07:03→22:54)
[2021-05-17] MEDS: IPRATROPIUM BROM 0.5 MG/2.5ML INH SOL NEB SCH ×4 (07:03→22:54)
[2021-05-17 07:07] LABS: Albumin 1.9 g/dL (3.4-5.0); Calcium 7.7 mg/dL (8.5-10.1); Potassium 5.1 mmol/L (3.5-5.1)
[2021-05-17 07:13] LABS: BUN/Creatinine Ratio 11.4; Bilirubin, Total 1.1 mg/dL (0.2-1.0); Total Protein 5.1 g/dL (6.4-8.2)
[2021-05-17 07:29] LABS: Band Neutrophils % (manual) 12; Eosinophils % (manual) 1 (0-7); Lymphocytes % (manual) 3 (10.0-50.0); Metamyelocytes % 1
[2021-05-17] MEDS ORDERED: cefTRIAXone 1GM/50ML D5W 50 ML IV SCH (09:00)
[2021-05-17 09:21] LABS: INR 1.49 (0.9-1.15)
[2021-05-17] MEDS: ALBUMIN 25% 100 ML IV SCH ×2 (09:27→16:29)
[2021-05-17] MEDS: FERROUS SULFATE 325mg EC TAB PO SCH (09:28)
[2021-05-17] MEDS: ASPirin-EC 81 mg tab PO SCH (09:29)
[2021-05-17] MEDS: APIXABAN 2.5 MG TAB PO SCH ×2 (09:29→22:31)
[2021-05-17] MEDS: FINASTERIDE 5 MG TAB PO SCH (09:30)
[2021-05-17] MEDS: PANTOPRAZOLE 40 MG TAB PO SCH (09:30)
[2021-05-17] MEDS ORDERED: [UNRECOGNIZED DRUG - OTHER] SC SCH (10:00)
[2021-05-17] MEDS ORDERED: ALFUZOSIN 10 MG PO SCH (10:00)
[2021-05-17] MEDS: MEROPENEM 500MG IVPB 50 ML IV SCH ×2 (10:05→22:45)
[2021-05-17] MEDS: MIDODRINE HCL 10 MG TAB PO SCH ×2 (12:59→18:00)
[2021-05-17] MEDS: MORPHINE SULFATE INJECTION 2 MG/ML SYRG IV PRN (13:31)
[2021-05-17] MEDS ORDERED: MEROPENEM 1GM IVPB 100 ML IV SCH (14:00)
[2021-05-17] MEDS: methylPREDNISolone SOD SUCC 125 MG/2 ML VL IV SCH ×2 (14:36→22:31)
[2021-05-17] MEDS ORDERED: LORazepam 2MG/ML-1ML VIAL IV PRN (16:00)
[2021-05-17] MEDS: ATORVASTATIN 20 MG TAB PO SCH (22:31)
[2021-05-18] VITALS (9 sets, daily range): BP systolic 92–127; BP diastolic 52–68
[2021-05-18] MEDS: ALBUTEROL SULF 2.5 MG/0.5ML(0.5%) NEB SOLN NEB SCH ×4 (00:46→19:17)
[2021-05-18] MEDS: IPRATROPIUM BROM 0.5 MG/2.5ML INH SOL NEB SCH ×4 (00:46→19:17)
[2021-05-18] MEDS: ALBUMIN 25% 100 ML IV SCH (01:18)
[2021-05-18] MEDS: PHENYLEPHRINE IV 250 ML IV SCH ×2 (04:53→04:54)
[2021-05-18] MEDS: methylPREDNISolone SOD SUCC 125 MG/2 ML VL IV SCH (05:42)
[2021-05-18] MEDS: MIDODRINE HCL 10 MG TAB PO SCH ×3 (05:42→18:26)
[2021-05-18 06:00] LABS: Basophils # (auto) 0 10 ^3/uL (0-0.2); Basophils % (auto) 0.2 % (0.0-2.0); Eosinophils # (auto) 0 10 ^3/uL (0-0.8); Hematocrit 26.3 % (41.0-53.0); Hemoglobin 9.1 g/dL (13.5-17.5); Lymphocytes # (auto) 0.3 10 ^3/uL (0.4-5.4); Lymphocytes % (auto) 3.4 % (10.0-50.0); Mean Corpuscular Hemoglobin 32.1 pg (28.0-32.0); Mean Corpuscular Hgb Conc. 34.7 g/dL (32.0-36.0); Mean Corpuscular Volume 92.5 fL (80.0-100.0); Monocytes # (auto) 0.3 10 ^3/uL (0-1.3); Monocytes % (auto) 3.7 % (0.0-12.0); Neutrophils # (auto) 7.2 10 ^3/uL (1.6-8.6); Neutrophils % (auto) 92.7 % (37.0-80.0); Red Blood Cells 2.84 10^6/uL (4.5-5.90); Red Cell Distribution Width 16.5 % (11.8-14.3); White Blood Cell 7.8 10^3/uL (4.4-10.8)
[2021-05-18 06:35] LABS: Albumin 2.8 g/dL (3.4-5.0); Calcium 7.1 mg/dL (8.5-10.1)
[2021-05-18 06:40] LABS: BUN/Creatinine Ratio 12.7; Bilirubin, Total 1.1 mg/dL (0.2-1.0); Total Protein 5.6 g/dL (6.4-8.2)
[2021-05-18 06:42] LABS: Potassium 5.6 mmol/L (3.5-5.1)
[2021-05-18] MEDS: ACCU-CHEK COMFORT CURVE STRIP VI SCH ×4 (06:42→18:26)
[2021-05-18] MEDS: InsuLIN REG 1unit/0.01ml Soln (100units/ml) SC SCH ×3 (06:47→16:49)
[2021-05-18] MEDS ORDERED: SODIUM BICARBONATE 8.4% INJ 50ML SYRINGE IV ONE ×2 (07:00→10:45)
[2021-05-18] MEDS ORDERED: DEXTROSE (50%) 50ML SYRG IV ONE (07:00)
[2021-05-18] MEDS: FERROUS SULFATE 325mg EC TAB PO SCH (08:14)
[2021-05-18] MEDS: FINASTERIDE 5 MG TAB PO SCH (08:14)
[2021-05-18] MEDS: APIXABAN 2.5 MG TAB PO SCH ×2 (08:14→23:58)
[2021-05-18] MEDS: ASPirin-EC 81 mg tab PO SCH (08:14)
[2021-05-18] MEDS ORDERED: ALBUMIN 25% 100 ML IV ONE (08:15)
[2021-05-18] MEDS: PANTOPRAZOLE 40 MG TAB PO SCH (08:15)
[2021-05-18] MEDS ORDERED: FUROSEMIDE 20 MG/2 ML VIAL IV ONE (08:15)
[2021-05-18] MEDS: MEROPENEM 500MG IVPB 50 ML IV SCH ×3 (09:49→23:57)
[2021-05-18 10:25] LABS: Protein, Urine 122.2 mg/dL (0.0-11.9)
[2021-05-18 10:27] LABS: Alcohol, Urine < 3.0 mg/dL (0-10); Amphetamine Screen, Urine NEGATIVE (NEGATIVE); Barbiturate Scree,Urine NEGATIVE (NEGATIVE); Benzodiazephine Screen, Urine NEGATIVE (NEGATIVE); Cannabinoid Screen, Urine NEGATIVE (NEGATIVE); Cocaine Screen, Urine NEGATIVE (NEGATIVE); Opiate Scree,Urine POSITIVE (NEGATIVE); Phencyclidine Screen, Urine NEGATIVE (NEGATIVE)
[2021-05-18 10:30] LABS: Urine Amorphous Crystal MOD /hpf (None Seen); Urine Bacteria MOD /hpf (None Seen); Urine Blood 3+ /uL (Negative); Urine Hyaline Cast FEW /lpf (0 - 2); Urine Specific Gravity 1.015 (1.001-1.035); Urine WBC 57 /hpf (0 - 3)
[2021-05-18] MEDS ORDERED: ALBUTEROL SULF 2.5 MG/0.5ML(0.5%) NEB SOLN NEB ONE (10:45)
[2021-05-18] MEDS ORDERED: InsuLIN REG 1unit/0.01ml Soln (100units/ml) IV ONE (10:45)
[2021-05-18] MEDS ORDERED: SODIUM BICARBONATE 50ML VIAL 150 ML in D5W 5% 1,000 ML IV SCH ×2 (10:45→14:15)
[2021-05-18] MEDS ORDERED: SODIUM ZIRCONIUM CYCL 10 GM PAK PO ONE (10:45)
[2021-05-18] MEDS ORDERED: FUROSEMIDE 40 MG/4 ML VIAL IV ONE (14:00)
[2021-05-18] MEDS: SODIUM ZIRCONIUM CYCL 10 GM PAK PO SCH ×2 (18:26→23:58)
[2021-05-18] MEDS: INSULIN LANTUS (GLARGINE) 1 /0.01ml (100units/ml) SC SCH (22:00)
[2021-05-19] VITALS (13 sets, daily range): BP systolic 94–159; BP diastolic 54–77
[2021-05-19] MEDS: ACCU-CHEK COMFORT CURVE STRIP VI SCH ×9 (00:03→22:05)
[2021-05-19] MEDS: InsuLIN REG 1unit/0.01ml Soln (100units/ml) SC SCH ×4 (00:05→18:23)
[2021-05-19] MEDS: ALBUTEROL SULF 2.5 MG/0.5ML(0.5%) NEB SOLN NEB SCH ×4 (00:46→18:41)
[2021-05-19] MEDS: IPRATROPIUM BROM 0.5 MG/2.5ML INH SOL NEB SCH ×4 (00:46→18:41)
[2021-05-19] MEDS: MIDODRINE HCL 10 MG TAB PO SCH ×3 (06:53→18:20)
[2021-05-19] MEDS: SODIUM ZIRCONIUM CYCL 10 GM PAK PO SCH ×3 (06:54→22:05)
[2021-05-19 07:13] LABS: Basophils # (auto) 0 10 ^3/uL (0-0.2); Basophils % (auto) 0.3 % (0.0-2.0); Eosinophils # (auto) 0 10 ^3/uL (0-0.8); Hematocrit 27.5 % (41.0-53.0); Hemoglobin 9.5 g/dL (13.5-17.5); Lymphocytes # (auto) 0.4 10 ^3/uL (0.4-5.4); Lymphocytes % (auto) 3.1 % (10.0-50.0); Mean Corpuscular Hemoglobin 31.5 pg (28.0-32.0); Mean Corpuscular Hgb Conc. 34.6 g/dL (32.0-36.0); Mean Corpuscular Volume 91.1 fL (80.0-100.0); Monocytes # (auto) 0.5 10 ^3/uL (0-1.3); Monocytes % (auto) 4.4 % (0.0-12.0); Neutrophils # (auto) 11.2 10 ^3/uL (1.6-8.6); Neutrophils % (auto) 92.2 % (37.0-80.0); Red Blood Cells 3.02 10^6/uL (4.5-5.90); Red Cell Distribution Width 16.6 % (11.8-14.3); White Blood Cell 12.1 10^3/uL (4.4-10.8)
[2021-05-19 07:24] LABS: BUN/Creatinine Ratio 16.5; Calcium 7.4 mg/dL (8.5-10.1); Magnesium 1.9 mg/dL (1.6-2.6); Potassium 4.9 mmol/L (3.5-5.1)
[2021-05-19] MEDS: FUROSEMIDE 40 MG/4 ML VIAL IV SCH (10:20)
[2021-05-19] MEDS: MEROPENEM 500MG IVPB 50 ML IV SCH ×2 (10:20→22:05)
[2021-05-19] MEDS: FINASTERIDE 5 MG TAB PO SCH (10:21)
[2021-05-19] MEDS: PANTOPRAZOLE 40 MG TAB PO SCH (10:21)
[2021-05-19] MEDS: ASPirin-EC 81 mg tab PO SCH (10:21)
[2021-05-19] MEDS: methylPREDNISolone SOD SUCC 125 MG/2 ML VL IV SCH (10:21)
[2021-05-19] MEDS: APIXABAN 2.5 MG TAB PO SCH ×2 (10:21→22:05)
[2021-05-19] MEDS: FERROUS SULFATE 325mg EC TAB PO SCH (10:21)
[2021-05-19] MEDS ORDERED: SODIUM BICARBONATE 8.4 % INJ 50ML VIAL IV ONE (10:24)
[2021-05-19] MEDS: INSULIN LANTUS (GLARGINE) 1 /0.01ml (100units/ml) SC SCH (22:05)
[2021-05-20] VITALS (9 sets, daily range): BP systolic 118–159; BP diastolic 63–89
[2021-05-20] MEDS: ACCU-CHEK COMFORT CURVE STRIP VI SCH ×5 (00:30→17:24)
[2021-05-20] MEDS: InsuLIN REG 1unit/0.01ml Soln (100units/ml) SC SCH ×4 (00:30→17:24)
[2021-05-20] MEDS: IPRATROPIUM BROM 0.5 MG/2.5ML INH SOL NEB SCH ×4 (00:40→18:40)
[2021-05-20] MEDS: ALBUTEROL SULF 2.5 MG/0.5ML(0.5%) NEB SOLN NEB SCH ×4 (00:41→18:40)
[2021-05-20 03:59] LABS: Basophils # (auto) 0 10 ^3/uL (0-0.2); Basophils % (auto) 0.1 % (0.0-2.0); Eosinophils # (auto) 0 10 ^3/uL (0-0.8); Eosinophils % (auto) 0.1 % (0.0-7.0); Hematocrit 25.8 % (41.0-53.0); Hemoglobin 8.7 g/dL (13.5-17.5); Lymphocytes # (auto) 0.4 10 ^3/uL (0.4-5.4); Lymphocytes % (auto) 3.6 % (10.0-50.0); Mean Corpuscular Hemoglobin 30.9 pg (28.0-32.0); Mean Corpuscular Hgb Conc. 33.7 g/dL (32.0-36.0); Mean Corpuscular Volume 91.4 fL (80.0-100.0); Monocytes # (auto) 0.5 10 ^3/uL (0-1.3); Monocytes % (auto) 4.2 % (0.0-12.0); Neutrophils # (auto) 10.3 10 ^3/uL (1.6-8.6); Nucleated Red Blood Cells % 0.1 %; Red Blood Cells 2.82 10^6/uL (4.5-5.90); Red Cell Distribution Width 16.7 % (11.8-14.3); White Blood Cell 11.2 10^3/uL (4.4-10.8)
[2021-05-20 04:36] LABS: BUN/Creatinine Ratio 21.3; Potassium 3.1 mmol/L (3.5-5.1)
[2021-05-20] MEDS: SODIUM ZIRCONIUM CYCL 10 GM PAK PO SCH (06:00)
[2021-05-20] MEDS: MIDODRINE HCL 10 MG TAB PO SCH ×3 (06:22→17:04)
[2021-05-20] MEDS ORDERED: POTASSIUM CHL 20MEQ/100ML 100 ML IV SCH (09:30)
[2021-05-20] MEDS ORDERED: POTASSIUM CHL 20 Meq TABLET PO ONE (09:30)
[2021-05-20] MEDS ORDERED: POTASSIUM CHLORIDE 60 MEQ, LIDOCAINE 1% (LOCAL ANESTH.) 6 ML in SODIUM CHL 0.9% 500 ML IV ONE (09:30)
[2021-05-20] MEDS: FERROUS SULFATE 325mg EC TAB PO SCH (09:31)
[2021-05-20] MEDS: PANTOPRAZOLE 40 MG TAB PO SCH (09:31)
[2021-05-20] MEDS: APIXABAN 2.5 MG TAB PO SCH ×2 (09:31→23:33)
[2021-05-20] MEDS: ASPirin-EC 81 mg tab PO SCH (09:31)
[2021-05-20] MEDS: FINASTERIDE 5 MG TAB PO SCH (09:32)
[2021-05-20] MEDS: FUROSEMIDE 40 MG/4 ML VIAL IV SCH (09:34)
[2021-05-20] MEDS: methylPREDNISolone SOD SUCC 125 MG/2 ML VL IV SCH (09:35)
[2021-05-20] MEDS: MEROPENEM 500MG IVPB 50 ML IV SCH ×2 (09:35→23:25)
[2021-05-20] MEDS ORDERED: LORazepam 2MG/ML-1ML VIAL IV ONE (11:30)
[2021-05-20] MEDS ORDERED: POTASSIUM CHLORIDE 40 MEQ, LIDOCAINE 1% (LOCAL ANESTH.) 4 ML in SODIUM CHL 0.9% 250 ML IV ONE (14:00)
[2021-05-20] MEDS: INSULIN LANTUS (GLARGINE) 1 /0.01ml (100units/ml) SC SCH (23:26)
[2021-05-21] VITALS (13 sets, daily range): BP systolic 141–177; BP diastolic 60–85
[2021-05-21] MEDS: ACCU-CHEK COMFORT CURVE STRIP VI SCH ×4 (00:23→18:10)
[2021-05-21] MEDS: InsuLIN REG 1unit/0.01ml Soln (100units/ml) SC SCH ×4 (00:26→18:00)
[2021-05-21] MEDS: ALBUTEROL SULF 2.5 MG/0.5ML(0.5%) NEB SOLN NEB SCH ×5 (00:30→23:49)
[2021-05-21] MEDS: IPRATROPIUM BROM 0.5 MG/2.5ML INH SOL NEB SCH ×5 (00:30→23:49)
[2021-05-21] MEDS ORDERED: LORazepam 2MG/ML-1ML VIAL IV ONE (03:00)
[2021-05-21 05:20] LABS: Basophils # (auto) 0 10 ^3/uL (0-0.2); Basophils % (auto) 0.2 % (0.0-2.0); Eosinophils # (auto) 0 10 ^3/uL (0-0.8); Hematocrit 30.1 % (41.0-53.0); Hemoglobin 10.3 g/dL (13.5-17.5); Lymphocytes # (auto) 0.5 10 ^3/uL (0.4-5.4); Lymphocytes % (auto) 3.4 % (10.0-50.0); Mean Corpuscular Hgb Conc. 34.1 g/dL (32.0-36.0); Mean Corpuscular Volume 91.1 fL (80.0-100.0); Monocytes # (auto) 0.9 10 ^3/uL (0-1.3); Neutrophils # (auto) 12.1 10 ^3/uL (1.6-8.6); Neutrophils % (auto) 89.4 % (37.0-80.0); Red Cell Distribution Width 16.7 % (11.8-14.3); White Blood Cell 13.5 10^3/uL (4.4-10.8)
[2021-05-21 05:47] LABS: BUN/Creatinine Ratio 27.7; Calcium 7.8 mg/dL (8.5-10.1); Potassium 3.7 mmol/L (3.5-5.1)
[2021-05-21] MEDS: MIDODRINE HCL 10 MG TAB PO SCH ×3 (06:00→18:12)
[2021-05-21] MEDS ORDERED: ALBUMIN 5% 250 ML IV ONE (08:30)
[2021-05-21] MEDS ORDERED: methylPREDNISolone SOD SUCC 40 MG/ML VL IV SCH (10:00)
[2021-05-21] MEDS: ASPirin-EC 81 mg tab PO SCH (10:42)
[2021-05-21] MEDS: APIXABAN 2.5 MG TAB PO SCH ×2 (10:42→21:53)
[2021-05-21] MEDS: FINASTERIDE 5 MG TAB PO SCH (10:42)
[2021-05-21] MEDS: PANTOPRAZOLE 40 MG TAB PO SCH (10:42)
[2021-05-21] MEDS: MEROPENEM 500MG IVPB 50 ML IV SCH ×2 (10:43→21:52)
[2021-05-21] MEDS: FUROSEMIDE 40 MG/4 ML VIAL IV SCH (10:43)
[2021-05-21] MEDS: LABETALOL HCL 5 MG/ML ML 20ML VIAL IV PRN (18:16)
[2021-05-21] MEDS: INSULIN LANTUS (GLARGINE) 1 /0.01ml (100units/ml) SC SCH (21:54)
[2021-05-22] VITALS (8 sets, daily range): BP systolic 161–194; BP diastolic 80–111
[2021-05-22] MEDS: ACCU-CHEK COMFORT CURVE STRIP VI SCH ×4 (00:08→18:00)
[2021-05-22 04:24] LABS: Basophils # (auto) 0 10 ^3/uL (0-0.2); Basophils % (auto) 0.4 % (0.0-2.0); Eosinophils # (auto) 0 10 ^3/uL (0-0.8); Hematocrit 31.8 % (41.0-53.0); Hemoglobin 10.5 g/dL (13.5-17.5); Lymphocytes # (auto) 0.8 10 ^3/uL (0.4-5.4); Lymphocytes % (auto) 6.7 % (10.0-50.0); Mean Corpuscular Hemoglobin 30.4 pg (28.0-32.0); Mean Corpuscular Volume 92.1 fL (80.0-100.0); Monocytes # (auto) 0.6 10 ^3/uL (0-1.3); Neutrophils # (auto) 10.7 10 ^3/uL (1.6-8.6); Neutrophils % (auto) 87.9 % (37.0-80.0); Nucleated Red Blood Cells % 0.1 %; Red Blood Cells 3.45 10^6/uL (4.5-5.90); Red Cell Distribution Width 16.4 % (11.8-14.3); White Blood Cell 12.2 10^3/uL (4.4-10.8)
[2021-05-22 04:45] LABS: Albumin 2.9 g/dL (3.4-5.0); Calcium 8.3 mg/dL (8.5-10.1); Potassium 3.6 mmol/L (3.5-5.1)
[2021-05-22 04:50] LABS: Bilirubin, Total 1.7 mg/dL (0.2-1.0); Total Protein 5.7 g/dL (6.4-8.2)
[2021-05-22] MEDS: ALBUTEROL SULF 2.5 MG/0.5ML(0.5%) NEB SOLN NEB SCH ×4 (06:00→19:51)
[2021-05-22] MEDS: MIDODRINE HCL 10 MG TAB PO SCH ×3 (06:00→18:00)
[2021-05-22] MEDS: InsuLIN REG 1unit/0.01ml Soln (100units/ml) SC SCH ×4 (06:00→18:00)
[2021-05-22] MEDS: IPRATROPIUM BROM 0.5 MG/2.5ML INH SOL NEB SCH ×3 (06:02→19:50)
[2021-05-22] MEDS ORDERED: LABETALOL HCL 5 MG/ML 4ML SYRINGE IV ONE ×2 (06:17→09:39)
[2021-05-22] MEDS: LABETALOL HCL 5 MG/ML ML 20ML VIAL IV PRN ×3 (06:25→11:11)
[2021-05-22] MEDS ORDERED: IPRATROPIUM BROM 0.5 MG/2.5ML INH SOL ONE ×2 (06:27→12:15)
[2021-05-22] MEDS ORDERED: D5W 5% 1,000 ML IV SCH (08:15)
[2021-05-22] MEDS: APIXABAN 2.5 MG TAB PO SCH ×2 (10:00→22:11)
[2021-05-22] MEDS: MEROPENEM 500MG IVPB 50 ML IV SCH ×2 (10:00→22:11)
[2021-05-22] MEDS: PANTOPRAZOLE 40 MG TAB PO SCH (10:00)
[2021-05-22] MEDS: FINASTERIDE 5 MG TAB PO SCH (10:00)
[2021-05-22] MEDS: FUROSEMIDE 40 MG/4 ML VIAL IV SCH (10:00)
[2021-05-22] MEDS: ASPirin-EC 81 mg tab PO SCH (10:00)
[2021-05-22] MEDS ORDERED: FUROSEMIDE 40 MG/4 ML VIAL ONE (11:15)
[2021-05-22] MEDS ORDERED: hydrALAZINE HCL 20 MG/ML VL IV PRN (11:15)
[2021-05-22] MEDS ORDERED: MEROPENEM 1GM IVPB 100 ML IV ONE (11:16)
[2021-05-22] MEDS ORDERED: LORazepam 2MG/ML-1ML VIAL ONE (11:49)
[2021-05-22] MEDS ORDERED: ALBUTEROL SULF 2.5 MG/0.5ML(0.5%) NEB SOLN ONE (12:15)
[2021-05-22] MEDS: D5W 5% 1,000 ML IV SCH ×2 (13:15→18:34)
[2021-05-22] MEDS: LABETALOL HCL 5 MG/ML 4ML SYRINGE IV PRN ×2 (19:56→23:04)
[2021-05-22] MEDS: INSULIN LANTUS (GLARGINE) 1 /0.01ml (100units/ml) SC SCH (22:12)
[2021-05-23] VITALS (8 sets, daily range): BP systolic 114–167; BP diastolic 56–89
[2021-05-23] MEDS: ACCU-CHEK COMFORT CURVE STRIP VI SCH ×4 (00:42→18:28)
[2021-05-23] MEDS: InsuLIN REG 1unit/0.01ml Soln (100units/ml) SC SCH ×4 (00:44→18:00)
[2021-05-23] MEDS: ALBUTEROL SULF 2.5 MG/0.5ML(0.5%) NEB SOLN NEB SCH ×4 (01:38→18:43)
[2021-05-23] MEDS: IPRATROPIUM BROM 0.5 MG/2.5ML INH SOL NEB SCH ×4 (01:38→18:43)
[2021-05-23] MEDS: D5W 5% 1,000 ML IV SCH (02:31)
[2021-05-23 04:37] LABS: Basophils # (auto) 0.1 10 ^3/uL (0-0.2); Basophils % (auto) 0.4 % (0.0-2.0); Eosinophils # (auto) 0.6 10 ^3/uL (0-0.8); Hematocrit 32.4 % (41.0-53.0); Lymphocytes # (auto) 1.2 10 ^3/uL (0.4-5.4); Lymphocytes % (auto) 8.5 % (10.0-50.0); Mean Corpuscular Hemoglobin 31.2 pg (28.0-32.0); Mean Corpuscular Hgb Conc. 33.9 g/dL (32.0-36.0); Mean Corpuscular Volume 91.8 fL (80.0-100.0); Monocytes # (auto) 0.4 10 ^3/uL (0-1.3); Neutrophils % (auto) 84.1 % (37.0-80.0); Nucleated Red Blood Cells % 0.1 %; Red Blood Cells 3.52 10^6/uL (4.5-5.90); Red Cell Distribution Width 16.9 % (11.8-14.3); White Blood Cell 14.3 10^3/uL (4.4-10.8)
[2021-05-23 04:41] LABS: Potassium 3.6 mmol/L (3.5-5.1)
[2021-05-23 04:44] LABS: BUN/Creatinine Ratio 38.1
[2021-05-23] MEDS: MIDODRINE HCL 10 MG TAB PO SCH ×3 (06:00→18:00)
[2021-05-23] MEDS: DEXTROSE (50%) 50ML SYRG IV PRN ×2 (06:55→12:54)
[2021-05-23] MEDS ORDERED: ALBUTEROL SULF 2.5 MG/0.5ML(0.5%) NEB SOLN ONE (07:04)
[2021-05-23] MEDS ORDERED: IPRATROPIUM BROM 0.5 MG/2.5ML INH SOL ONE (07:04)
[2021-05-23] MEDS: MORPHINE SULFATE INJECTION 2 MG/ML SYRG IV PRN (08:17)
[2021-05-23] MEDS: FINASTERIDE 5 MG TAB PO SCH (10:00)
[2021-05-23] MEDS: APIXABAN 2.5 MG TAB PO SCH ×2 (10:00→21:34)
[2021-05-23] MEDS: ASPirin-EC 81 mg tab PO SCH (10:00)
[2021-05-23] MEDS: PANTOPRAZOLE 40 MG TAB PO SCH (10:00)
[2021-05-23] MEDS: FUROSEMIDE 40 MG/4 ML VIAL IV SCH (10:00)
[2021-05-23] MEDS: MEROPENEM 500MG IVPB 50 ML IV SCH ×2 (11:23→21:34)
[2021-05-23] MEDS ORDERED: DEXTROSE 10% 1,000 ML IV ONE (13:15)
[2021-05-23] MEDS ORDERED: DEXTROSE (50%) 50ML SYRG IV ONE (13:15)
[2021-05-23] MEDS ORDERED: D5W 5% 1,000 ML IV SCH ×2 (13:30→20:00)
[2021-05-23] MEDS ORDERED: ENOXAPARIN SOD 30 MG/0.3 ML SYRINGE SC ONE (13:45)
[2021-05-23] MEDS ORDERED: PPN PER PHARMACY 500 ML IV SCH (17:00)
[2021-05-23] MEDS: INSULIN LANTUS (GLARGINE) 1 /0.01ml (100units/ml) SC SCH (21:23)
[2021-05-23] MEDS: traMADol HCL 50 MG TAB PO PRN (21:35)
[2021-05-23] MEDS: AMINO ACID INFUSION IN D10W 1,000 ML IV NR (21:55)
[2021-05-24] VITALS (12 sets, daily range): BP systolic 89–166; BP diastolic 36–80
[2021-05-24] MEDS: InsuLIN REG 1unit/0.01ml Soln (100units/ml) SC SCH ×4 (00:26→18:00)
[2021-05-24] MEDS: MORPHINE SULFATE INJECTION 2 MG/ML SYRG IV PRN ×2 (00:39→20:20)
[2021-05-24] MEDS: ALBUTEROL SULF 2.5 MG/0.5ML(0.5%) NEB SOLN NEB SCH ×4 (00:47→18:19)
[2021-05-24] MEDS: IPRATROPIUM BROM 0.5 MG/2.5ML INH SOL NEB SCH ×4 (00:48→18:18)
[2021-05-24 04:11] LABS: Basophils # (auto) 0.1 10 ^3/uL (0-0.2); Basophils % (auto) 0.4 % (0.0-2.0); Eosinophils # (auto) 1.8 10 ^3/uL (0-0.8); Eosinophils % (auto) 12.6 % (0.0-7.0); Hematocrit 33.9 % (41.0-53.0); Hemoglobin 11.4 g/dL (13.5-17.5); Lymphocytes # (auto) 1.8 10 ^3/uL (0.4-5.4); Lymphocytes % (auto) 12.4 % (10.0-50.0); Mean Corpuscular Hemoglobin 31.3 pg (28.0-32.0); Mean Corpuscular Hgb Conc. 33.5 g/dL (32.0-36.0); Mean Corpuscular Volume 93.3 fL (80.0-100.0); Monocytes # (auto) 0.7 10 ^3/uL (0-1.3); Monocytes % (auto) 4.7 % (0.0-12.0); Neutrophils # (auto) 10.1 10 ^3/uL (1.6-8.6); Neutrophils % (auto) 69.9 % (37.0-80.0); Nucleated Red Blood Cells % 0.1 %; Red Blood Cells 3.63 10^6/uL (4.5-5.90); Red Cell Distribution Width 17.1 % (11.8-14.3); White Blood Cell 14.5 10^3/uL (4.4-10.8)
[2021-05-24 04:41] LABS: Albumin 2.4 g/dL (3.4-5.0); Potassium 3.4 mmol/L (3.5-5.1)
[2021-05-24 04:48] LABS: BUN/Creatinine Ratio 41.8; Bilirubin, Total 1.7 mg/dL (0.2-1.0); Magnesium 1.9 mg/dL (1.6-2.6); Phosphorus 2.4 mg/dL (2.5-4.90); Pre Albumin 4.4 mg/dL (20.0-40.0); Total Protein 5.2 g/dL (6.4-8.2)
[2021-05-24] MEDS: MIDODRINE HCL 10 MG TAB PO SCH ×3 (05:57→18:00)
[2021-05-24] MEDS: ACCU-CHEK COMFORT CURVE STRIP VI SCH ×4 (05:58→18:00)
[2021-05-24] MEDS: D5W 5% 1,000 ML IV SCH ×3 (07:45→19:02)
[2021-05-24] MEDS: FUROSEMIDE 40 MG/4 ML VIAL IV SCH (10:00)
[2021-05-24] MEDS: MEROPENEM 500MG IVPB 50 ML IV SCH ×2 (10:00→22:59)
[2021-05-24] MEDS ORDERED: ENOXAPARIN SOD 30 MG/0.3 ML SYRINGE SC SCH (10:00)
[2021-05-24] MEDS: APIXABAN 2.5 MG TAB PO SCH ×2 (11:49→22:59)
[2021-05-24] MEDS: PANTOPRAZOLE 40 MG TAB PO SCH (11:49)
[2021-05-24] MEDS: ASPirin-EC 81 mg tab PO SCH (11:49)
[2021-05-24] MEDS: FINASTERIDE 5 MG TAB PO SCH (11:49)
[2021-05-24] MEDS: POTASSIUM CHL 20MEQ/100ML 100 ML IV SCH ×2 (12:00→13:17)
[2021-05-24] MEDS ORDERED: dilTIAZem 25 MG/5 ML VIAL IV ONE ×3 (14:42→20:27)
[2021-05-24] MEDS ORDERED: PPN PER PHARMACY IV NR ×9 (20:00)
[2021-05-24] MEDS ORDERED: dilTIAZem 125mg/125ml BAG KIT 100 ML IV SCH (20:15)
[2021-05-24] MEDS: AMINO ACID INFUSION IN D10W 1,000 ML IV NR (22:59)
[2021-05-24] MEDS: INSULIN LANTUS (GLARGINE) 1 /0.01ml (100units/ml) SC SCH (23:01)
[2021-05-25] VITALS: BP 93/39
[2021-05-25] MEDS ORDERED: dilTIAZem 25 MG/5 ML VIAL IV ONE
[2021-05-25] MEDS: IPRATROPIUM BROM 0.5 MG/2.5ML INH SOL NEB SCH (00:05)
[2021-05-25] MEDS: ALBUTEROL SULF 2.5 MG/0.5ML(0.5%) NEB SOLN NEB SCH (00:05)
[2021-05-25] MEDS: ACCU-CHEK COMFORT CURVE STRIP VI SCH (00:14)
[2021-05-25] MEDS: InsuLIN REG 1unit/0.01ml Soln (100units/ml) SC SCH (00:15)
[2021-06-24] MEDS ORDERED: LORazepam 2MG/ML-1ML VIAL IV ONE ×3 (15:30)
== END 2021-05-25 01:09 | DRG 871 ==
LOC: ER 06:47 → EDBD 06:47 → TELE 11:39
PROVIDERS: ADMIT Internal Medicine; ATTEND Internal Medicine
PROC: 05HY33Z Insertion of Infusion Device into Upper Vein, Percutaneous Approach (ICD-10-PCS; 2021-05-17)
PROC: 5A09557 Assistance with Respiratory Ventilation, Greater than 96 Consecutive Hours, Continuous Positive Airway Pressure (ICD-10-PCS; principal; 2021-05-18)
DX: A41.9 Sepsis, unspecified organism (principal); E43 Unspecified severe protein-calorie malnutrition; I50.33 Acute on chronic diastolic (congestive) heart failure; N17.0 Acute kidney failure with tubular necrosis; J18.9 Pneumonia, unspecified organism; J96.21 Acute and chronic respiratory failure with hypoxia; R65.21 Severe sepsis with septic shock; C78.00 Secondary malignant neoplasm of unspecified lung; J44.1 Chronic obstructive pulmonary disease with (acute) exacerbation; I48.20 Chronic atrial fibrillation, unspecified; C78.02 Secondary malignant neoplasm of left lung; C78.01 Secondary malignant neoplasm of right lung; D68.9 Coagulation defect, unspecified; E87.0 Hyperosmolality and hypernatremia; I13.0 Hypertensive heart and chronic kidney disease with heart failure and stage 1 through stage 4 chronic kidney disease, or unspecified chronic kidney disease; J44.0 Chronic obstructive pulmonary disease with (acute) lower respiratory infection; E87.6 Hypokalemia; Z66 Do not resuscitate; C43.9 Malignant melanoma of skin, unspecified; D69.6 Thrombocytopenia, unspecified; E11.21 Type 2 diabetes mellitus with diabetic nephropathy; H70.92 Unspecified mastoiditis, left ear; D63.8 Anemia in other chronic diseases classified elsewhere; E86.0 Dehydration; N18.32 Chronic kidney disease, stage 3b; G25.0 Essential tremor; Z20.822 Contact with and (suspected) exposure to COVID-19; E11.22 Type 2 diabetes mellitus with diabetic chronic kidney disease; E78.5 Hyperlipidemia, unspecified; E87.5 Hyperkalemia; N40.0 Benign prostatic hyperplasia without lower urinary tract symptoms; Z79.01 Long term (current) use of anticoagulants; Z68.26 Body mass index [BMI] 26.0-26.9, adult; Z79.899 Other long term (current) drug therapy; Z80.9 Family history of malignant neoplasm, unspecified; Z82.49 Family history of ischemic heart disease and other diseases of the circulatory system; Z83.3 Family history of diabetes mellitus; Z85.820 Personal history of malignant melanoma of skin; Z86.73 Personal history of transient ischemic attack (TIA), and cerebral infarction without residual deficits; Z87.01 Personal history of pneumonia (recurrent); Z92.21 Personal history of antineoplastic chemotherapy
CPT/HCPCS: 36415; 36600; 70450; 71045; 80048; 80053; 80307; 81001; 82040; 82550; 82570; 82805; 82962; 83735; 83880; 84100; 84156; 84300; 84443; 84478; 84484; 85007; 85025; 85027; 85379; 85610; 87040; 87086; 87426; 93005; 93886; 93971; 94640; 94660; 96361; 96365; G0378; J0696; J1815; J2001; J2185; J3480; J3490; J7060; P9047